=== PATIENT | female | born 1955 | race Caucasian/White ===

== ENCOUNTER → 2017-07-20 11:01 | Outpatient (CLI) | payer BC, SELFPAY ==
[2017-03-03 12:56] VITALS: BMI 28.8
[2017-03-03 16:08] VITALS: BP 151/79
[2017-07-20 12:05] LABS: Absolute Lymphocyte Count 0.92 X10^3/ul (0.83-4.51); Absolute Neutrophil Count 2.6 X10^3/uL (2.0-7.7); Basophil# 0.03 X10^3/uL; Basophil% 0.7 % (0-1); Eosinophil# 0.09 X10^3/uL; Eosinophils% 2.1 % (0-5); Hematocrit 40.9 % (37-47); Hemoglobin 13.9 g/dl (12.0-15.0); Lymphocyte # 0.92 X10^3/ul (4.0); Lymphocyte % 21.9 % (19-41); Mean Corpuscular Hgb 32.6 pg (27.0-32.0); Mean Platelet Vol. 11.9 fl (6.2-12.0); Monocyte# 0.52 X10^3/uL; Monocyte% 12.4 % (0-10); Neutrophil # 2.64 X10^3/uL (2.7-7.7); Neutrophil % 62.7 % (47-70); Platelet Count 217 K/mm3 (150-450); RBC Distribution Width CV 13.4 % (11.6-14.6); Red Blood Count 4.26 M/mm3 (4.2-5.4); White Blood Count 4.2 K/mm3 (4.4-11.0)
[2017-07-20 12:09] LABS: POSITIVE COUNT NO; POSITIVE DIFFERENTIAL NO; POSITIVE MORPHOLOGY NO
[2017-07-20 12:37] LABS: ALB/GLOB Ratio 1.1 RATIO (0.9-2.4); AST(SGOT) 18 U/L (15-37); Alanine Aminotransfer ALT/SGPT 26 U/L (13-56); Albumin, Serum 3.8 g/dL (3.2-5.0); Alkaline Phosphatase 60 U/L (45-117); Anion Gap 4 (5-15); BUN 21 mg/dL (7-18); BUN/Creat Ratio 21.9 RATIO (10-20); Chloride 104 mmol/L (98-107); Creatinine, Serum 0.96 mg/dL (0.55-1.02); EST Glomerular Filtration Rate 63 mL/min (>60); Est Glom Filt Rate - Afr Amer 76 mL/min (>60); Globulin 3.5 g/dL (2.2-4.2); Glucose 90 mg/dL (74-106); Protein, Total 7.3 g/dL (6.4-8.2); Sodium Level 138 mmol/L (136-145)
== END ==
PROVIDERS: Family Provider Family Medicine; PCP Family Medicine; Visit Provider Internal Medicine Rheumatology
DX: M06.4 Inflammatory polyarthropathy (principal); Z79.899 Other long term (current) drug therapy; M79.7 Fibromyalgia; C49.A2 Gastrointestinal stromal tumor of stomach
CPT/HCPCS: 36415; 80053; 85025

== ENCOUNTER → 2017-10-11 09:19 | Outpatient (CLI) | payer BC, SELFPAY ==
[2017-10-11 12:59] LABS: ALB/GLOB Ratio 1.2 RATIO (0.9-2.4); AST(SGOT) 24 U/L (15-37); Alanine Aminotransfer ALT/SGPT 23 U/L (13-56); Albumin, Serum 3.8 g/dL (3.2-5.0); Alkaline Phosphatase 73 U/L (45-117); Anion Gap 9 (5-15); BUN 16 mg/dL (7-18); BUN/Creat Ratio 17.8 RATIO (10-20); Calcium,Total 9.2 mg/dL (8.5-10.1); Chloride 107 mmol/L (98-107); EST Glomerular Filtration Rate 68 mL/min (>60); Est Glom Filt Rate - Afr Amer 82 mL/min (>60); Globulin 3.3 g/dL (2.2-4.2); Glucose 84 mg/dL (74-106); Protein, Total 7.1 g/dL (6.4-8.2); Sodium Level 142 mmol/L (136-145)
[2017-10-11 13:21] LABS: Absolute Lymphocyte Count 1.12 X10^3/ul (0.83-4.51); Absolute Neutrophil Count 1.9 X10^3/uL (2.0-7.7); Basophil# 0.01 X10^3/uL; Basophil% 0.3 % (0-1); Eosinophil# 0.06 X10^3/uL; Eosinophils% 1.8 % (0-5); Hematocrit 38.8 % (37-47); Hemoglobin 12.9 g/dl (12.0-15.0); Lymphocyte # 1.12 X10^3/ul (4.0); Lymphocyte % 32.7 % (19-41); Mean Corp Hgb Conc 33.2 g/gl (32-36); Mean Corpuscular Hgb 32.8 pg (27.0-32.0); Mean Corpuscular Volume 98.7 fL (81-99); Mean Platelet Vol. 12.3 fl (6.2-12.0); Monocyte# 0.36 X10^3/uL; Monocyte% 10.5 % (0-10); Neutrophil # 1.87 X10^3/uL (2.7-7.7); Neutrophil % 54.7 % (47-70); Platelet Count 208 K/mm3 (150-450); RBC Distribution Width CV 12.8 % (11.6-14.6); RBC Distribution Width SD 46.2 fl (35.1-43.9); Red Blood Count 3.93 M/mm3 (4.2-5.4); White Blood Count 3.4 K/mm3 (4.4-11.0)
[2017-10-11 13:33] LABS: POSITIVE COUNT NO; POSITIVE DIFFERENTIAL NO; POSITIVE MORPHOLOGY NO
== END ==
PROVIDERS: Family Provider Family Medicine; PCP Family Medicine; Visit Provider Internal Medicine Rheumatology
DX: M06.4 Inflammatory polyarthropathy (principal); Z79.899 Other long term (current) drug therapy; M79.7 Fibromyalgia; C49.A2 Gastrointestinal stromal tumor of stomach
CPT/HCPCS: 36415; 80053; 85025

== ENCOUNTER → 2017-12-29 09:44 | Outpatient (CLI) | payer BC, SELFPAY ==
[2017-12-29 12:47] LABS: AST(SGOT) 38 U/L (15-37); Alanine Aminotransfer ALT/SGPT 37 U/L (13-56); Albumin, Serum 3.7 g/dL (3.2-5.0); Alkaline Phosphatase 77 U/L (45-117); Anion Gap 6 (5-15); BUN 15 mg/dL (7-18); BUN/Creat Ratio 17.7 RATIO (10-20); Calcium,Total 8.8 mg/dL (8.5-10.1); Chloride 105 mmol/L (98-107); Creatinine, Serum 0.85 mg/dL (0.55-1.02); EST Glomerular Filtration Rate 73 mL/min (>60); Est Glom Filt Rate - Afr Amer 88 mL/min (>60); Globulin 3.8 g/dL (2.2-4.2); Glucose 79 mg/dL (74-106); Potassium 4.2 mmol/L (3.5-5.1); Protein, Total 7.5 g/dL (6.4-8.2); Sodium Level 140 mmol/L (136-145)
[2017-12-29 12:48] LABS: Absolute Lymphocyte Count 1.26 X10^3/ul (0.83-4.51); Absolute Neutrophil Count 2.2 X10^3/uL (2.0-7.7); Basophil# 0.02 X10^3/uL; Basophil% 0.5 % (0-1); Eosinophil# 0.08 X10^3/uL; Hematocrit 40.1 % (37-47); Hemoglobin 13.4 g/dl (12.0-15.0); Lymphocyte # 1.26 X10^3/ul (4.0); Lymphocyte % 32.1 % (19-41); Mean Corp Hgb Conc 33.4 g/gl (32-36); Mean Corpuscular Hgb 32.5 pg (27.0-32.0); Mean Corpuscular Volume 97.3 fL (81-99); Mean Platelet Vol. 11.6 fl (6.2-12.0); Monocyte# 0.39 X10^3/uL; Monocyte% 9.9 % (0-10); Neutrophil # 2.17 X10^3/uL (2.7-7.7); Neutrophil % 55.5 % (47-70); Platelet Count 215 K/mm3 (150-450); RBC Distribution Width CV 12.6 % (11.6-14.6); Red Blood Count 4.12 M/mm3 (4.2-5.4); White Blood Count 3.9 K/mm3 (4.4-11.0)
[2017-12-29 12:58] LABS: POSITIVE COUNT NO; POSITIVE DIFFERENTIAL NO; POSITIVE MORPHOLOGY NO
== END ==
PROVIDERS: Family Provider Family Medicine; PCP Family Medicine; Visit Provider Internal Medicine Rheumatology
DX: M06.4 Inflammatory polyarthropathy (principal); Z79.899 Other long term (current) drug therapy; M79.7 Fibromyalgia; C49.A2 Gastrointestinal stromal tumor of stomach
CPT/HCPCS: 36415; 80053; 85025

== ENCOUNTER → 2018-03-18 10:30 | Outpatient (CLI) | payer BC, SELFPAY ==
--- NOTE | 2018-03-18 10:30 | ASPS_PTH ---
PATIENT: SARAI MORAN LOC: [facility] U#:[id number] AGE/SX: 70/F ROOM: RE03/18/[address]: Dr. Gonzalo Medrano III, MD : 1955 BED: DIS: SPEC #: [id number] RECD: 03/21/18 14:21 STATUS: SOFIA REJanneth #: [id number] MARIBEL: 03/18/18 10:[address]: Miguel Medrano DEPT: CYTOLOGY RECD BY: Armen Dangelo ENTERED: 03/21/18 14:25 SP TYPE: ASPIRATION OTHR DR: Dr. Gonzalo Medrano III, MD Tissues: A - Thyroid gland, NOS B - Thyroid gland, NOS Procedures: Pap Stain (control) Special Stain Group II Cytology Other Comments: @ Ordering doctor for SSII edited from to @ by ROMIE at 03/21/18 154 @ Ordering doctor for CYOTHER edited from to @ by ROMIE at 03/21/18 1544 @ Submitting doctor edited from to @ by ROMIE at 03/21/18 1545 HEADER OPERATION: Bilateral thyroid FNA PRE-OP DIAGNOSIS: Bilateral thyroid nodules TISSUE SUBMITTED: A - Right thyroid slides 6, B - Left thyroid slides 6 DIAGNOSIS CYTOLOGY A. Right thyroid nodule, FNA (smears): Consistent with benign follicular nodule. See cytology study and comment. B. Left thyroid nodule, FNA (smears): Consistent with benign follicular nodule, favor colloid nodule. See cytology study and comment. SJ:rg 03/22/18 COMMENT Correlation with clinical, radiologic findings and appropriate follow up are necessary. CYTOLOGY STUDY Slides are reviewed. A. The specimen is adequate for evaluation. The specimen consists of benign follicular cells. B. The specimen is adequate for evaluation. The specimen consists of benign follicular cells and colloid. CYTOLOGY GROSS A - Received are six smears labeled with the patient's name and designated per the requisition as right thyroid. Submitted for staining. B - Received are six smears labeled with the patient's name and designated per the requisition as left thyroid. Submitted for staining. 03/21/18 TC:5 CPT: 81015 x2
== END ==
PROVIDERS: Visit Provider Family Medicine
DX: E04.1 Nontoxic single thyroid nodule (principal)
CPT/HCPCS: 88161; 88313

== ENCOUNTER → 2018-03-24 10:29 | Outpatient (CLI) | payer BC, SELFPAY ==
[2018-03-24 12:13] LABS: Absolute Lymphocyte Count 1.03 X10^3/ul (0.83-4.51); Absolute Neutrophil Count 1.6 X10^3/uL (2.0-7.7); Basophil# 0.02 X10^3/uL; Basophil% 0.6 % (0-1); Eosinophil# 0.07 X10^3/uL; Eosinophils% 2.2 % (0-5); Hemoglobin 13.2 g/dl (12.0-15.0); Lymphocyte # 1.03 X10^3/ul (4.0); Mean Corp Hgb Conc 33.8 g/gl (32-36); Mean Corpuscular Hgb 32.5 pg (27.0-32.0); Mean Corpuscular Volume 96.1 fL (81-99); Mean Platelet Vol. 11.9 fl (6.2-12.0); Monocyte# 0.36 X10^3/uL; Monocyte% 11.5 % (0-10); Neutrophil # 1.64 X10^3/uL (2.7-7.7); Neutrophil % 52.7 % (47-70); Platelet Count 193 K/mm3 (150-450); RBC Distribution Width CV 12.6 % (11.6-14.6); RBC Distribution Width SD 42.8 fl (35.1-43.9); Red Blood Count 4.06 M/mm3 (4.2-5.4); White Blood Count 3.1 K/mm3 (4.4-11.0)
[2018-03-24 12:24] LABS: ALB/GLOB Ratio 1.2 RATIO (0.9-2.4); AST(SGOT) 25 U/L (15-37); Alanine Aminotransfer ALT/SGPT 26 U/L (13-56); Albumin, Serum 3.8 g/dL (3.2-5.0); Alkaline Phosphatase 50 U/L (45-117); Anion Gap 7 (5-15); BUN 18 mg/dL (7-18); Calcium,Total 9.2 mg/dL (8.5-10.1); Chloride 107 mmol/L (98-107); EST Glomerular Filtration Rate 68 mL/min (>60); Est Glom Filt Rate - Afr Amer 82 mL/min (>60); Globulin 3.3 g/dL (2.2-4.2); Glucose 87 mg/dL (74-106); Potassium 4.1 mmol/L (3.5-5.1); Protein, Total 7.1 g/dL (6.4-8.2); Sodium Level 142 mmol/L (136-145)
[2018-03-24 12:28] LABS: POSITIVE COUNT NO; POSITIVE DIFFERENTIAL NO; POSITIVE MORPHOLOGY NO
== END ==
PROVIDERS: Family Provider Family Medicine; PCP Family Medicine; Referring Provider Internal Medicine Rheumatology; Visit Provider Internal Medicine Rheumatology
DX: M06.4 Inflammatory polyarthropathy (principal); Z79.899 Other long term (current) drug therapy; M79.7 Fibromyalgia; C49.A2 Gastrointestinal stromal tumor of stomach
CPT/HCPCS: 36415; 80053; 85025

== ENCOUNTER → 2018-03-25 06:40 | Outpatient (CLI) | payer BC, SELFPAY ==
--- NOTE | 2018-03-25 06:43 | CT_ITS ---
STUDY: CT SOFT TISSUE NECK WITH CONTRAST REASON FOR EXAM: Female, 63 years old. Left-sided neck mass RADIATION DOSAGE (If Supplied By Facility): CTDIvol = ( 13.73 ) mGy, DLP = ( 394.36 ) mGycm TECHNIQUE: The patient was scanned in a multi-detector CT scanner. High resolution transaxial imaging was performed following intravenous administration of 75 ml of Isovue 300 contrast material. Sagittal and coronal images were reconstructed. Individualized dose optimization techniques were used for this CT. COMPARISON: None. FINDINGS: Several images are limited due to scanning artifact caused by metallic dental work. Normal bilateral parotid glands. Normal bilateral dietary supervisor spaces. Normal bilateral parapharyngeal spaces. Normal bilateral carotid spaces. Normal bilateral sublingual and submandibular glands and spaces. The left-sided skin marker is located superficial to a normal-appearing left submandibular gland. Normal visualized nasopharynx. Normal retropharyngeal space. Normal perivertebral space. Normal visualized bilateral faucial tonsils. The visualized tongue, tongue base and oropharynx are normal. The visualized cervical lymph nodes (levels I-) are within normal size limits, and maintain normal morphology. There is no demonstrated solid or cystic mass lesion. There is no abnormal contrast enhancement. Normal epiglottis, bilateral vallecula and hypopharynx. The pre-epiglottic and paraglottic adipose spaces are normal. Normal visualized bilateral piriform sinuses, aryepiglottic folds, vocal cords, and arytenoid-cricoid articulations. Normal subglottic trachea. There are low-attenuation foci of the left and right thyroid lobes consistent with nodules and/or cysts. Normal visualized pulmonary apices. Normal visualized paranasal sinuses. Normal visualized cervical spine. CT/Soft Tissue Neck WITH Contrast IMPRESSION: There is no evidence of cervical mass or adenopathy. The left-sided skin marker is located superficial to a normal-appearing left submandibular gland. There are low-attenuation foci of the left and right thyroid lobes consistent with cysts and/or nodules. Electronically Signed: Efraín Fulton MD at 18:42 EDT , Service support ,
== END ==
PROVIDERS: Family Provider Family Medicine; PCP Family Medicine; Referring Provider Surgery; Visit Provider Surgery
DX: R22.1 Localized swelling, mass and lump, neck (principal)
CPT/HCPCS: 70491; Q9967

== ENCOUNTER → 2018-06-24 10:59 | Outpatient (CLI) | payer BC, SELFPAY ==
[2018-03-17 08:07] VITALS: BMI 27.4
[2018-06-24 12:26] LABS: Absolute Lymphocyte Count 0.92 X10^3/ul (0.83-4.51); Absolute Neutrophil Count 2.8 X10^3/uL (2.0-7.7); Basophil# 0.02 X10^3/uL; Basophil% 0.5 % (0-1); Eosinophil# 0.05 X10^3/uL; Eosinophils% 1.2 % (0-5); Hemoglobin 13.1 g/dl (12.0-15.0); Lymphocyte # 0.92 X10^3/ul (4.0); Lymphocyte % 22.3 % (19-41); Mean Corp Hgb Conc 33.6 g/gl (32-36); Mean Corpuscular Hgb 32.8 pg (27.0-32.0); Mean Corpuscular Volume 97.7 fL (81-99); Monocyte# 0.37 X10^3/uL; Neutrophil # 2.76 X10^3/uL (2.7-7.7); Platelet Count 200 K/mm3 (150-450); RBC Distribution Width CV 12.1 % (11.6-14.6); RBC Distribution Width SD 41.8 fl (35.1-43.9); Red Blood Count 3.99 M/mm3 (4.2-5.4); White Blood Count 4.1 K/mm3 (4.4-11.0)
[2018-06-24 12:32] LABS: POSITIVE COUNT NO; POSITIVE DIFFERENTIAL NO; POSITIVE MORPHOLOGY NO
[2018-06-24 12:47] LABS: AST(SGOT) 20 U/L (15-37); Alanine Aminotransfer ALT/SGPT 23 U/L (13-56); Albumin, Serum 3.8 g/dL (3.2-5.0); Alkaline Phosphatase 72 U/L (45-117); Anion Gap 8 (5-15); BUN 14 mg/dL (7-18); BUN/Creat Ratio 16.3 RATIO (10-20); Calcium,Total 9.2 mg/dL (8.5-10.1); Chloride 104 mmol/L (98-107); Creatinine, Serum 0.86 mg/dL (0.55-1.02); EST Glomerular Filtration Rate 72 mL/min (>60); Est Glom Filt Rate - Afr Amer 87 mL/min (>60); Globulin 3.7 g/dL (2.2-4.2); Glucose 100 mg/dL (74-106); Potassium 4.3 mmol/L (3.5-5.1); Protein, Total 7.5 g/dL (6.4-8.2); Sodium Level 141 mmol/L (136-145)
== END ==
PROVIDERS: Family Provider Family Medicine; PCP Family Medicine; Referring Provider Internal Medicine Rheumatology; Visit Provider Internal Medicine Rheumatology
DX: M06.4 Inflammatory polyarthropathy (principal); Z79.899 Other long term (current) drug therapy; M79.7 Fibromyalgia; C49.A2 Gastrointestinal stromal tumor of stomach
CPT/HCPCS: 36415; 80053; 85025

== ENCOUNTER → 2018-09-12 10:12 | Outpatient (CLI) | payer BC, SELFPAY ==
[2018-03-17 08:07] VITALS: BMI 27.4
[2018-09-12 12:49] LABS: ALB/GLOB Ratio 1.1 RATIO (0.9-2.4); AST(SGOT) 27 U/L (15-37); Alanine Aminotransfer ALT/SGPT 26 U/L (13-56); Albumin, Serum 3.9 g/dL (3.2-5.0); Alkaline Phosphatase 64 U/L (45-117); Anion Gap 5 (5-15); BUN 13 mg/dL (7-18); BUN/Creat Ratio 15.2 RATIO (10-20); Chloride 107 mmol/L (98-107); Creatinine, Serum 0.86 mg/dL (0.55-1.02); EST Glomerular Filtration Rate 72 mL/min (>60); Est Glom Filt Rate - Afr Amer 87 mL/min (>60); Globulin 3.7 g/dL (2.2-4.2); Glucose 78 mg/dL (74-106); Potassium 3.9 mmol/L (3.5-5.1); Protein, Total 7.6 g/dL (6.4-8.2); Sodium Level 141 mmol/L (136-145)
[2018-09-12 13:57] LABS: Absolute Neutrophil Count 2.1 X10^3/uL (2.0-7.7); Basophil# 0.02 X10^3/uL; Basophil% 0.7 % (0-1); Eosinophil# 0.04 X10^3/uL; Eosinophils% 1.3 % (0-5); Hematocrit 40.4 % (37-47); Hemoglobin 13.5 g/dl (12.0-15.0); Lymphocyte % 20.1 % (19-41); Mean Corp Hgb Conc 33.4 g/gl (32-36); Mean Corpuscular Hgb 31.6 pg (27.0-32.0); Mean Corpuscular Volume 94.6 fL (81-99); Mean Platelet Vol. 11.9 fl (6.2-12.0); Monocyte# 0.27 X10^3/uL; Neutrophil # 2.06 X10^3/uL (2.7-7.7); Neutrophil % 68.9 % (47-70); Platelet Count 184 K/mm3 (150-450); RBC Distribution Width CV 12.3 % (11.6-14.6); RBC Distribution Width SD 41.7 fl (35.1-43.9); Red Blood Count 4.27 M/mm3 (4.2-5.4)
[2018-09-12 14:14] LABS: Differential Indicated SCAN CRITERIA MET; POSITIVE COUNT NO; POSITIVE DIFFERENTIAL YES; POSITIVE MORPHOLOGY NO
== END ==
PROVIDERS: Family Provider Family Medicine; PCP Family Medicine; Referring Provider Internal Medicine Rheumatology; Visit Provider Internal Medicine Rheumatology
DX: M06.4 Inflammatory polyarthropathy (principal); Z79.899 Other long term (current) drug therapy; M79.7 Fibromyalgia
CPT/HCPCS: 36415; 80053; 85025

== ENCOUNTER → 2019-01-04 11:23 | Outpatient (CLI) | payer BC, SELFPAY ==
[2018-03-17 08:07] VITALS: BMI 27.4
[2019-01-04 14:19] LABS: Absolute Neutrophil Count 2.5 X10^3/uL (2.0-7.7); Basophil# 0.04 X10^3/uL; Eosinophil# 0.15 X10^3/uL; Eosinophils% 3.7 % (0-5); Hemoglobin 13.8 g/dL (12.0-15.0); Lymphocyte % 24.7 % (19-41); Mean Corp Hgb Conc 33.7 g/dL (32-36); Mean Corpuscular Hgb 33.3 pg (27.0-32.0); Mean Platelet Vol. 11.6 fl (6.2-12.0); Monocyte% 9.9 % (0-10); NRBC Flagged by Analyzer 0 % (0-5); Neutrophil # 2.45 X10^3/uL (2.7-7.7); Neutrophil % 60.5 % (47-70); Platelet Count 242 K/mm3 (150-450); RBC Distribution Width CV 12.3 % (11.6-14.6); RBC Distribution Width SD 45.1 fl (35.1-43.9); Red Blood Count 4.14 M/mm3 (4.2-5.4); White Blood Count 4.1 K/mm3 (4.4-11.0)
[2019-01-04 14:31] LABS: AST(SGOT) 25 U/L (15-37); Alanine Aminotransfer ALT/SGPT 28 U/L (13-56); Albumin, Serum 3.7 g/dL (3.2-5.0); Alkaline Phosphatase 80 U/L (45-117); Anion Gap 8 (5-15); BUN 17 mg/dL (7-18); Calcium,Total 9.1 mg/dL (8.5-10.1); Chloride 105 mmol/L (98-107); EST Glomerular Filtration Rate 60 mL/min (>60); Est Glom Filt Rate - Afr Amer 72 mL/min (>60); Globulin 3.7 g/dL (2.2-4.2); Glucose 69 mg/dL (74-106); Potassium 4.2 mmol/L (3.5-5.1); Protein, Total 7.4 g/dL (6.4-8.2); Sodium Level 142 mmol/L (136-145)
== END ==
PROVIDERS: Family Provider Family Medicine; PCP Family Medicine; Referring Provider Internal Medicine Rheumatology; Visit Provider Internal Medicine Rheumatology
DX: M06.4 Inflammatory polyarthropathy (principal); Z79.899 Other long term (current) drug therapy; M79.7 Fibromyalgia; C49.A2 Gastrointestinal stromal tumor of stomach
CPT/HCPCS: 36415; 80053; 85025

== ENCOUNTER → 2019-01-06 09:34 | Outpatient (CLI) | payer BC, SELFPAY ==
[2018-03-17 08:07] VITALS: BMI 27.4
--- NOTE | 2019-01-06 09:50 | RAD_ITS ---
STUDY: X-RAY - PELVIS AND BILATERAL HIPS REASON FOR EXAM: Female, 63 years old. Radiating pain after a fall TECHNIQUE: AP view of the pelvis.? 2 views of the right hip, and 2 views of the left hip were obtained. COMPARISON: None. FINDINGS: There is a non-specific bowel gas pattern. Normal visualized soft tissue structures. Normal bilateral iliac wings, sacroiliac joints and visualized sacrum. Normal bilateral superior and inferior pubic rami. Normal pubic symphysis. Normal bilateral ischial tuberosities. Replaced right hip joint demonstrates anatomic alignment. No plain film evidence of hardware complication, failure, or acute traumatic abnormality Normal visualized left femoral head. Normal left acetabulum. There is mild articular joint space narrowing of the left hip. RAD/Hips B/L min 2 views w/ Pelvis IMPRESSION: Degenerative and postsurgical changes noted in the pelvis. No demonstrated fracture or suspicious osseous lesion. However, hip and pelvic fractures in patients of this age can be subtle, if there are strong clinical suspicion of a fracture, recommend further evaluation with CT Electronically Signed: Edgar Coe MD at 10:25 EDT , Service support ,
== END ==
PROVIDERS: Family Provider Family Medicine; PCP Family Medicine; Referring Provider Internal Medicine Rheumatology; Visit Provider Internal Medicine Rheumatology
DX: M06.4 Inflammatory polyarthropathy (principal); Z79.899 Other long term (current) drug therapy; M79.7 Fibromyalgia; C49.A2 Gastrointestinal stromal tumor of stomach
CPT/HCPCS: 73521

== ENCOUNTER → 2019-03-23 09:55 | Outpatient (CLI) | payer OTHER, SELFPAY ==
[2018-03-17 08:07] VITALS: BMI 27.4
[2019-03-23 12:26] LABS: Absolute Lymphocyte Count 1.02 X10^3/uL (0.83-4.51); Absolute Neutrophil Count 1.9 X10^3/uL (2.0-7.7); Basophil# 0.03 X10^3/uL; Basophil% 0.9 % (0-1); Eosinophil# 0.06 X10^3/uL; Eosinophils% 1.8 % (0-5); Hemoglobin 13.2 g/dL (12.0-15.0); Lymphocyte # 1.02 X10^3/ul (4.0); Lymphocyte % 29.8 % (19-41); Mean Corpuscular Hgb 31.8 pg (27.0-32.0); Mean Corpuscular Volume 96.4 fL (81-99); Mean Platelet Vol. 11.8 fl (6.2-12.0); Monocyte# 0.36 X10^3/uL; Monocyte% 10.5 % (0-10); NRBC Flagged by Analyzer 0 % (0-5); Neutrophil # 1.94 X10^3/uL (2.7-7.7); Neutrophil % 56.7 % (47-70); Platelet Count 198 K/mm3 (150-450); RBC Distribution Width CV 12.3 % (11.6-14.6); RBC Distribution Width SD 43.2 fl (35.1-43.9); Red Blood Count 4.15 M/mm3 (4.2-5.4); White Blood Count 3.4 K/mm3 (4.4-11.0)
[2019-03-23 12:35] LABS: ALB/GLOB Ratio 1.1 RATIO (0.9-2.4); AST(SGOT) 29 U/L (15-37); Alanine Aminotransfer ALT/SGPT 31 U/L (13-56); Albumin, Serum 3.8 g/dL (3.2-5.0); Alkaline Phosphatase 69 U/L (45-117); Anion Gap 7 (5-15); BUN 18 mg/dL (7-18); BUN/Creat Ratio 20.2 RATIO (10-20); Calcium,Total 8.8 mg/dL (8.5-10.1); Chloride 107 mmol/L (98-107); Creatinine, Serum 0.89 mg/dL (0.55-1.02); EST Glomerular Filtration Rate 68 mL/min (>60); Est Glom Filt Rate - Afr Amer 83 mL/min (>60); Globulin 3.4 g/dL (2.2-4.2); Glucose 68 mg/dL (74-106); Potassium 3.9 mmol/L (3.5-5.1); Protein, Total 7.2 g/dL (6.4-8.2); Sodium Level 144 mmol/L (136-145)
== END ==
PROVIDERS: Family Provider Family Medicine; PCP Family Medicine; Referring Provider Internal Medicine Rheumatology; Visit Provider Internal Medicine Rheumatology
DX: M06.4 Inflammatory polyarthropathy (principal); Z79.899 Other long term (current) drug therapy; C49.A2 Gastrointestinal stromal tumor of stomach
CPT/HCPCS: 36415; 80053; 85025

== ENCOUNTER → 2019-06-22 09:43 | Outpatient (CLI) | payer OTHER, SELFPAY ==
[2018-03-17 08:07] VITALS: BMI 27.4
[2019-06-22 12:21] LABS: Absolute Lymphocyte Count 0.94 X10^3/uL (0.83-4.51); Absolute Neutrophil Count 2.5 X10^3/uL (2.0-7.7); Basophil# 0.03 X10^3/uL; Basophil% 0.8 % (0-1); Eosinophil# 0.08 X10^3/uL; Hematocrit 40.9 % (37-47); Hemoglobin 13.5 g/dL (12.0-15.0); Lymphocyte # 0.94 X10^3/ul (4.0); Lymphocyte % 23.8 % (19-41); Mean Corpuscular Hgb 31.9 pg (27.0-32.0); Mean Corpuscular Volume 96.7 fL (81-99); Mean Platelet Vol. 11.9 fl (6.2-12.0); Monocyte# 0.38 X10^3/uL; Monocyte% 9.6 % (0-10); NRBC Flagged by Analyzer 0 % (0-5); Neutrophil # 2.51 X10^3/uL (2.7-7.7); Neutrophil % 63.5 % (47-70); Platelet Count 227 K/mm3 (150-450); RBC Distribution Width CV 12.3 % (11.6-14.6); RBC Distribution Width SD 43.2 fl (35.1-43.9); Red Blood Count 4.23 M/mm3 (4.2-5.4)
[2019-06-22 12:37] LABS: ALB/GLOB Ratio 1.1 RATIO (0.9-2.4); AST(SGOT) 25 U/L (15-37); Alanine Aminotransfer ALT/SGPT 28 U/L (13-56); Albumin, Serum 3.8 g/dL (3.2-5.0); Alkaline Phosphatase 72 U/L (45-117); Anion Gap 7 (5-15); BUN 18 mg/dL (7-18); BUN/Creat Ratio 18.8 RATIO (10-20); Calcium,Total 9.2 mg/dL (8.5-10.1); Chloride 104 mmol/L (98-107); Creatinine, Serum 0.96 mg/dL (0.55-1.02); EST Glomerular Filtration Rate 63 mL/min (>60); Est Glom Filt Rate - Afr Amer 76 mL/min (>60); Globulin 3.6 g/dL (2.2-4.2); Glucose 83 mg/dL (74-106); Protein, Total 7.4 g/dL (6.4-8.2); Sodium Level 139 mmol/L (136-145)
== END ==
PROVIDERS: Family Provider Family Medicine; PCP Family Medicine; Referring Provider Internal Medicine Rheumatology; Visit Provider Internal Medicine Rheumatology
DX: M06.4 Inflammatory polyarthropathy (principal); Z79.899 Other long term (current) drug therapy; M79.7 Fibromyalgia; C49.A2 Gastrointestinal stromal tumor of stomach
CPT/HCPCS: 36415; 80053; 85025

== ENCOUNTER → 2019-08-15 13:07 | Outpatient (CLI) | payer OTHER, SELFPAY ==
[2019-07-24 11:51] VITALS: BMI 27.4
--- NOTE | 2019-08-15 13:13 | RAD_ITS ---
STUDY: X-RAY CHEST REASON FOR EXAM: Female, 64 years old. 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 FINDINGS: The lungs are clear and expanded. There is no demonstrated pleural abnormality. Normal size heart. Normal mediastinum and jessie. Normal visualized pulmonary arteries. Normal visualized aortic arch and descending thoracic aorta. Mild degenerative changes of the thoracic spine. Normal visualized ribs, clavicles, and shoulders. There is no demonstrated abnormality of the visualized soft tissue structures of the upper abdomen. RAD/Chest PA and Lateral IMPRESSION: Normal x-ray examination of the chest. Electronically Signed: Cornel Ramirez DO at 23:57 EST Tel [phone], Service support ,
== END ==
PROVIDERS: PCP Family Medicine; Referring Provider Internal Medicine Hematology & Oncology; Visit Provider Internal Medicine Hematology & Oncology
DX: C49.A2 Gastrointestinal stromal tumor of stomach (principal)
CPT/HCPCS: 71046

== ENCOUNTER → 2019-10-06 11:24 | Outpatient (CLI) | payer OTHER, SELFPAY ==
[2019-09-22 11:27] VITALS: BMI 27.4
[2019-10-06 15:23] LABS: Absolute Lymphocyte Count 1.06 X10^3/uL (0.83-4.51); Absolute Neutrophil Count 2.4 X10^3/uL (2.0-7.7); Basophil# 0.03 X10^3/uL; Basophil% 0.8 % (0-1); Eosinophil# 0.06 X10^3/uL; Eosinophils% 1.6 % (0-5); Hematocrit 41.1 % (37-47); Hemoglobin 13.6 g/dL (12.0-15.0); Lymphocyte # 1.06 X10^3/ul (4.0); Lymphocyte % 27.5 % (19-41); Mean Corp Hgb Conc 33.1 g/dL (32-36); Mean Corpuscular Hgb 32.2 pg (27.0-32.0); Mean Corpuscular Volume 97.4 fL (81-99); Mean Platelet Vol. 11.9 fl (6.2-12.0); Monocyte# 0.35 X10^3/uL; Monocyte% 9.1 % (0-10); NRBC Flagged by Analyzer 0 % (0-5); Neutrophil # 2.36 X10^3/uL (2.7-7.7); Platelet Count 237 K/mm3 (150-450); RBC Distribution Width CV 12.5 % (11.6-14.6); RBC Distribution Width SD 44.3 fl (35.1-43.9); Red Blood Count 4.22 M/mm3 (4.2-5.4); White Blood Count 3.9 K/mm3 (4.4-11.0)
[2019-10-06 15:53] LABS: ALB/GLOB Ratio 1.1 RATIO (0.9-2.4); AST(SGOT) 25 U/L (15-37); Alanine Aminotransfer ALT/SGPT 37 U/L (13-56); Albumin, Serum 3.7 g/dL (3.2-5.0); Alkaline Phosphatase 84 U/L (45-117); Anion Gap 5 (5-15); BUN 14 mg/dL (7-18); BUN/Creat Ratio 14.9 RATIO (10-20); Calcium,Total 9.4 mg/dL (8.5-10.1); Chloride 105 mmol/L (98-107); Creatinine, Serum 0.94 mg/dL (0.55-1.02); EST Glomerular Filtration Rate 64 mL/min (>60); Est Glom Filt Rate - Afr Amer 78 mL/min (>60); Globulin 3.5 g/dL (2.2-4.2); Glucose 85 mg/dL (74-106); Potassium 3.9 mmol/L (3.5-5.1); Protein, Total 7.2 g/dL (6.4-8.2); Sodium Level 139 mmol/L (136-145)
== END ==
PROVIDERS: PCP Family Medicine; Referring Provider Internal Medicine Rheumatology; Visit Provider Internal Medicine Rheumatology
DX: M06.4 Inflammatory polyarthropathy (principal); Z79.899 Other long term (current) drug therapy; M79.7 Fibromyalgia; M18.11 Unilateral primary osteoarthritis of first carpometacarpal joint, right hand; C49.A2 Gastrointestinal stromal tumor of stomach
CPT/HCPCS: 36415; 80053; 85025

== ENCOUNTER 2020-08-27 14:58 | Outpatient (RCR) | payer OTHER, SELFPAY ==
[2019-09-22 11:27] VITALS: BMI 27.4
[2020-08-27] MEDS: COVID-19 VACC, MRNA(PFIZER)/PF 30 MCG/0.3 ML SYRINGE IM (17:19)
[2020-09-17] MEDS: COVID-19 VACC, MRNA(PFIZER)/PF 30 MCG/0.3 ML SYRINGE IM (17:04)
== END 2020-08-27 23:59 ==
LOC: IMMUN 14:58
PROVIDERS: PCP Family Medicine; Referring Provider Family Medicine; Visit Provider Family Medicine
DX: Z23 Encounter for immunization (principal)
CPT/HCPCS: 0001A; 0002A; 91300

== ENCOUNTER 2021-04-10 10:23 | Emergency (ER) | payer OTHER, SELFPAY ==
[2021-04-10 10:33] VITALS: BP 153/73; PULSE 114; RESP 16; TEMP 36.1; O2SAT 99; BMI 27.4
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
[2021-04-10] MEDS: Ibuprofen 600 MG Tablet PO (12:12)
[2021-04-10 12:48] VITALS: PULSE 88; RESP 16; TEMP 36.9; O2SAT 98
== END 2021-04-10 12:51 | disposition home or self-care (01) ==
PROVIDERS: Emergency Provider Emergency Medicine
DX: S60.222A Contusion of left hand, initial encounter (principal); S80.12XA Contusion of left lower leg, initial encounter; Y92.410 Unspecified street and highway as the place of occurrence of the external cause; E04.2 Nontoxic multinodular goiter; K58.9 Irritable bowel syndrome, unspecified; M19.90 Unspecified osteoarthritis, unspecified site; Z79.899 Other long term (current) drug therapy; Z96.649 Presence of unspecified artificial hip joint
CPT/HCPCS: 29130; 73130; 73590; 99284

== ENCOUNTER → 2022-02-26 | Outpatient (CLI) | payer MEDICARE, OTHER, SELFPAY ==
--- NOTE | 2022-02-26 | ASPS_PTH ---
PATIENT: SARAI MORAN LOC: [facility] U#:[id number] AGE/SX: 66/F ROOM: RE02/26/[address]: Dr. Yolanda Lacy MD : 1955 BED: DIS: 02/26/2022 SPEC #: [id number] RECD: 02/26/22 13:02 STATUS: SOFIA REJanneth #: [id number] MARIBEL: 02/26/22 00:[address]: Yolanda Lacy DEPT: CYTOLOGY RECD BY: Tano Carrillo ENTERED: 02/26/22 13:03 SP TYPE: ASPIRATION OTHR DR: Dr. Benedict Roth MD Tissues: Breast, NOS Procedures: Special Stain Group II Cytology Other HEADER OPERATION: Left breast aspiration PRE-OP DIAGNOSIS: Left breast nipple discharge TISSUE SUBMITTED: Left breast nipple discharge DIAGNOSIS CYTOLOGY Fluid from nipple discharge (smears): Negative for malignant cells. See comment. AM:wade 02/27/2022 COMMENT The specimen is virtually acellular with rare degenerating macrophages and epithelioid cells. Clinical correlation is suggested. CYTOLOGY STUDY Slides are reviewed. CYTOLOGY GROSS Received are five smears labeled with the patient's name and designated per the requisition as left breast nipple. Submitted for staining. / wade 02/26/2022 TC:5 [facility]: [id number]
== END | disposition home or self-care (01) ==
PROVIDERS: PCP Internal Medicine; Referring Provider Surgery; Visit Provider Surgery
DX: N64.52 Nipple discharge (principal)
CPT/HCPCS: 88161; 88313

== ENCOUNTER 2023-03-10 16:25 | Emergency (ER) | payer MEDICARE, OTHER, SELFPAY ==
[2023-03-10 16:26] VITALS: BP 145/84; PULSE 76; RESP 16; TEMP 36; O2SAT 98; BMI 28.5
--- NOTE | 2023-03-10 16:59 | ED.VIS.GI ---
HPI HPI - GI History of Present Illness Chief Complaint: Abd Pain Informant: patient Abdominal Pain/Flank Pain Onset: Weeks (1) Context: Gradual Onset Timing: Continuous Quality: Burning, Dull and Sharp Location: LUQ, RLQ and LLQ Worsened by: Nothing Relieved by: Nothing Nausea/Vomiting/Emesis GI Symptom: Positive for Nausea; Negative for Vomiting Diarrhea/Melena/Hematochezia GI Symptom: Negative for Diarrhea, Melena or Hematochezia Associated Symptoms Associated Symptoms: Negative for Dysuria, Frequency or Hematuria Narrative Narrative: Patient presents with abdominal pain that has been constant over the past week. Patient states it has been waxing and waning. Patient states it is gradually gotten worse. Patient states her pain is mainly over the lower abdomen and left upper abdomen. Patient also admits to some pain around the periumbilical area. Patient states nothing makes it better and nothing makes it worse. Patient admits to some nausea but denies any vomiting. Patient denies any diarrhea, melena, or hematochezia. Patient does admit to some constipation. Patient denies any dysuria, frequency, or hematuria. Patient had an outpatient CT scan done today which showed a large amount of fecal material throughout the colon. There is a transition point in the distal rectosigmoid junction. Patient was then referred to the emergency department by her primary care physician. [facility] Medical History Acute bronchitis, unspecified Acute bronchitis, unspecified Arthralgia of temporomandibular joint Breast density Chest pain Chest wall contusion COVID-19 COVID-19 Elevated blood-pressure reading without diagnosis of hypertension Fatigue Fibromyalgia Hematoma of left lower leg HLA-B27 positive arthropathy IBS (irritable bowel syndrome) Lab test negative for COVID-19 virus Mass of left side of neck Multiple thyroid nodules Osteoarthritis Shingles Stromal tumor of the stomach Varicose veins of other specified sites Home Medications calcium carbonate 600 mg-vitamin D3 20 mcg (800 unit) tablet 1 ea PO DAILY 02/24/17 [History Last Taken Unknown] coenzyme Q10 100 mg-vitamin E 10 unit capsule 1 ea PO DAILY 02/24/17 [History Last Taken Unknown] carbamazepine 100 mg tablet,extended release,12 hr 100 mg PO BID 04/10/21 [History Last Taken Unknown] dexamethasone 6 mg tablet 6 mg PO DAILY #5 tabs 06/12/22 [Rx Last Taken Unknown] amoxicillin 875 mg-potassium clavulanate 125 mg tablet 1 tab PO BID #20 tabs 07/30/22 [Rx Last Taken Unknown] Allergy/AdvReac Type Severity Reaction Status Date / Time adhesive AdvReac BLISTERS Verified 03/10/23 16:28 atorvastatin [From Lipitor] AdvReac MUSCLE ACHE Verified 03/10/23 16:28 simvastatin [From Zocor] AdvReac MUSCLE ACHE Verified 03/10/23 16:28 Family History Mother Arthritis Diabetes Father Diabetes Heart disease High cholesterol Brother Heart disease High cholesterol Sister Heart disease Surgical History History of laparoscopic partial gastrectomy History of total hip replacement Hx of breast biopsy Hx of colonoscopy Hx of tubal ligation hx of tumor removal of stomach Hx of varicose vein stripping Social History Smoking Status: Never smoker second hand exposure: No alcohol intake: never substance use type: does not use caffeine: Yes (twice a month) what type of physical activity do you participate in: other details: physical work frequency: 3-4 times per week seatbelt use: always ROS ROS ED Constitutional Constitutional ED: Reports fever(s); Denies chills Eyes Eyes: Denies blurry vision or change in vision ENT ENT ED: Denies rhinorrhea or sore throat Cardiovascular Cardiovascular: Denies chest pain or palpitations Respiratory/Chest Respiratory/Chest: Denies cough or dyspnea Gastrointestinal Gastrointestinal: Reports abdominal pain, constipation and nausea; Denies vomiting Genitourinary Genitourinary ED: Denies dysuria or hematuria Musculoskeletal Musculoskeletal: Reports back pain; Denies neck pain Integumentary Denies abscess or rash Neurologic Neurologic: Reports headache(s); Denies weakness Allergic/Immunologic Allergic/Immunologic ED: Denies mouth swelling or urticaria EXAM Physical Exam Const Vital Signs: 03/10/23 16:26 03/10/23 20:23 Temperature 96.8 F L Temperature Source Temporal Pulse Rate 76 65 Respiratory Rate 16 15 Blood Pressure 145/84 H 166/75 H Blood Pressure Mean 104 105 Pulse Ox 98 97 Oxygen Delivery Method Room Air Room Air Positive well nourished and well developed General Appearance ED: well developed HEENT Reports moist mucous membranes Neck supple and no JVD Resp normal respiratory effort and clear to auscultation bilaterally Cardio regular rate, regular rhythm and no murmurs GI normal to inspection, nondistended, normoactive bowel sounds Palpation: soft and tender LLQ and periumbilical; Negative for guarding or rebound tenderness present Extremity normal to inspection General Extremety ED: Negative for edema or tenderness General Extremity: Negative for edema Neuro oriented x3, CN's II-XII intact bilaterally and no sensory deficits noted Sensorium / Orientation: alert Motor Exam: strength 5/5 throughout Psych mental status grossly normal Skin no rashes or lesions noted MDM MDM MDM Narrative Medical decision making narrative: Differential diagnosis includes bowel obstruction, constipation, colon stricture, gastroenteritis, and urinary tract infection. CBC will be obtained to assess for leukocytosis and anemia. Comprehensive metabolic profile will be obtained to assess for hepatic function, renal function, and electrolyte abnormality. Urinalysis will be obtained to assess for urinary tract infection. Lab Data Attestation: I reviewed the patient's lab results. Lab results narrative: CBC was reviewed and was within normal limits. Comprehensive metabolic profile was reviewed. Electrolytes were essentially within normal limits. CO2 was low at 17 and anion gap was elevated at 17. The remainder was within normal limits. Serum lactate was reviewed and was normal at 1.0. Repeat basic metabolic profile was reviewed. CO2 was now normal at 30.0 and anion gap was normal at 4. Labs: Laboratory Results - last 24 hr 03/10/23 03/10/23 03/10/23 17:19 18:40 20:55 WBC 4.6 RBC 4.39 Hgb 13.9 Hct 42.2 MCV 96.1 MCH 31.7 MCHC 32.9 RDW Std Deviation 42.4 RDW Coeff of Juan 11.9 Plt Count 208 MPV 12.1 H Immature Gran % (Auto) 0.000 Neut % (Auto) 61.3 Lymph % (Auto) 27.7 [place] % (Auto) 9.1 Eos % (Auto) 1.5 Baso % (Auto) 0.4 Absolute Neuts (auto) 2.8 Absolute Lymphs (auto) 1.28 Nucleated RBC % 0 Sodium 134 L 138 Potassium 3.4 L 3.8 Chloride 100 104 Carbon Dioxide 17.0 L 30.0 Anion Gap 17 H 4 L BUN 13 14 Creatinine 0.90 0.85 Estim Creat Clear Calc 46.40 49.13 Est GFR (MDRD) Af Amer 81 87 Est GFR (MDRD) Non-Af 67 72 BUN/Creatinine Ratio 14.5 16.5 Glucose 96 87 Lactic Acid 1.0 Calcium 9.2 9.6 Total Bilirubin 0.50 AST 18 ALT 27 Alkaline Phosphatase 62 Total Protein 7.8 Albumin 0.1 L Globulin 7.7 H Albumin/Globulin Ratio 0.0 L Urine Color Straw Urine Clarity Clear Urine pH 6.5 Ur Specific [place] 1.010 Urine Protein Negative Urine Glucose (UA) Normal Urine Ketones Negative Urine Occult Blood 10 H Urine Nitrite Negative Urine Bilirubin Negative Urine Urobilinogen Normal Ur Leukocyte Esterase 25 H Urine RBC 0 SEEN Urine WBC 0-5 SEEN Ur Squamous Epith Cells 0 SEEN Urine Bacteria 0 SEEN Urine Mucus 0 SEEN Treatment and Re-Evaluation :: Patient was given IV fluids here. Patient was given a soapsuds enema. Case was discussed with Dr. Murphy. She did not think that this would was a bowel obstruction. She stated that the patient can follow-up as an outpatient with gastroenterology for possible colonoscopy. Patient was encouraged to take laxatives as needed. Patient was given a referral for gastroenterology. Patient was also instructed to follow-up with her primary care physician in 5 to 7 days. Patient understands and is agreeable with the plan. All questions were answered. Discharge Plan Triage Chief Complaint: Abd Pain ED Provider: Benito Anderson Dx/Rx/DC Orders Clinical Impression: Constipation, IBS (irritable bowel syndrome) Instructions: ED Constipation (Adult) Prescriptions: No Action dexamethasone 6 mg tablet 6 mg PO DAILY Qty: 5 0RF amoxicillin-pot clavulanate 875-125 mg tablet 1 tab PO BID Qty: 20 0RF calcium carbonate-vitamin D3 1 EACH tablet 1 ea PO DAILY coenzyme [id number] 1 EACH capsule 1 ea PO DAILY carbamazepine 100 mg tablet extended release 12 hr 100 mg PO BID Patient Comments: TAKE 1 TABLET BY MOUTH TWICE DAILY Primary Care Provider: Gustabo Valdes Referrals: Gustabo Valdes MD [Primary Care Provider] - 5-7 Days Yolanda Lacy MD [Med Staff - Active Staff] - 5-7 Days Austyn Stern DO [Med Staff - Active Staff] - 5-7 Days Disposition Disposition: Home, Self Care
[2023-03-10 17:23] LABS: Bacteria 0 SEEN /hpf (None Seen); Mucous, Urine 0 SEEN /hpf (<or=2+); Red Blood Cells-Urine 0 SEEN /hpf (0-5); Squamous Epithelial Cells - UA 0 SEEN /hpf (5-10)
[2023-03-10 17:30] LABS: Color, Urine Straw (Yellow); Glucose, Dipstick Normal (Normal); Ketone-Dipstick Negative (Negative); Leukocyte Esterase-Dipstick 25 /ul (Negative); Nitrite-Dipstick Negative (Negative); Occult Blood-Urine 10 /ul (Negative); Protein-Dipstick Negative (Negative); Urine Bilirubin Dipstick Negative (Negative); Urine Clarity Clear (Clear); Urine Urobilinogen Normal (Normal); Urine pH 6.5 (5.0 - 8.0)
[2023-03-10 17:31] LABS: Absolute Lymphocyte Count 1.28 X10^3/uL (0.83-4.51); Absolute Neutrophil Count 2.8 X10^3/uL (2.0-7.7); Basophil# 0.02 X10^3/uL; Basophil% 0.4 % (0-1); Eosinophil# 0.07 X10^3/uL; Eosinophils% 1.5 % (0-5); Hematocrit 42.2 % (37-47); Hemoglobin 13.9 g/dL (12.0-15.0); Lymphocyte # 1.28 X10^3/ul (0.83-4.51); Lymphocyte % 27.7 % (19-41); Mean Corp Hgb Conc 32.9 g/dL (32-36); Mean Corpuscular Hgb 31.7 pg (27.0-32.0); Mean Corpuscular Volume 96.1 fL (81-99); Mean Platelet Vol. 12.1 fl (6.2-12.0); Monocyte# 0.42 X10^3/uL; Monocyte% 9.1 % (0-10); NRBC Flagged by Analyzer 0 % (0-5); Neutrophil # 2.83 X10^3/uL (2.7-7.7); Neutrophil % 61.3 % (47-70); Platelet Count 208 K/mm3 (150-450); RBC Distribution Width CV 11.9 % (11.6-14.6); RBC Distribution Width SD 42.4 fl (35.1-43.9); Red Blood Count 4.39 M/mm3 (4.2-5.4); White Blood Count 4.6 K/mm3 (4.4-11.0)
[2023-03-10 18:14] LABS: White Blood Cells 0-5 SEEN /hpf (0-5)
[2023-03-10 18:20] LABS: AST(SGOT) 18 U/L (15-37); Alanine Aminotransfer ALT/SGPT 27 U/L (13-56); Alkaline Phosphatase 62 U/L (45-117); BUN 13 mg/dL (7-18); BUN/Creat Ratio 14.5 RATIO (10-20); Calcium,Total 9.2 mg/dL (8.5-10.1); Chloride 100 mmol/L (98-107); EST Glomerular Filtration Rate 67 mL/min (>60); Est Glom Filt Rate - Afr Amer 81 mL/min (>60); Glucose 96 mg/dL (74-106); Potassium 3.4 mmol/L (3.5-5.1); Protein, Total 7.8 g/dL (6.4-8.2); Sodium Level 134 mmol/L (136-145)
[2023-03-10 20:23] VITALS: BP 166/75; PULSE 65; RESP 15; O2SAT 97
[2023-03-10] MEDS: 0.9% Normal Saline (1000mL) 1,000 ML 1000 ML IV (20:58)
[2023-03-10 21:22] LABS: Anion Gap 4 (5-15); BUN 14 mg/dL (7-18); BUN/Creat Ratio 16.5 RATIO (10-20); Calcium,Total 9.6 mg/dL (8.5-10.1); Chloride 104 mmol/L (98-107); Creatinine, Serum 0.85 mg/dL (0.55-1.02); EST Glomerular Filtration Rate 72 mL/min (>60); Est Glom Filt Rate - Afr Amer 87 mL/min (>60); Estimated Creatinine Clearance 49.13 ml/min; Glucose 87 mg/dL (74-106); Potassium 3.8 mmol/L (3.5-5.1); Sodium Level 138 mmol/L (136-145)
[2023-03-10 22:16] VITALS: BP 143/67; PULSE 65; RESP 15; O2SAT 97
[2023-03-11 07:53] LABS: ALB/GLOB Ratio 1.1 RATIO (0.9-2.4); Albumin, Serum 4.1 g/dL (3.2-5.0); Globulin 3.7 g/dL (2.2-4.2)
[2023-03-11 07:54] LABS: Anion Gap 8 (5-15)
== END 2023-03-10 22:34 | disposition home or self-care (01) ==
PROVIDERS: Emergency Provider Emergency Medicine; PCP Family Medicine; Visit Provider Emergency Medicine
DX: K59.00 Constipation, unspecified (principal); K58.0 Irritable bowel syndrome with diarrhea; Z96.649 Presence of unspecified artificial hip joint
CPT/HCPCS: 80048; 80053; 81001; 83605; 85025; 96360; 99285; J7030; A4216

== ENCOUNTER → 2023-03-10 | Outpatient (CLI) | payer MEDICARE, OTHER, SELFPAY ==
--- NOTE | 2023-03-10 09:02 | CT_ITS ---
STUDY: CT ABDOMEN AND PELVIS WITH CONTRAST REASON FOR EXAM: Female, 68 years old. Other intestinal obstruction unspecified as to partial versus com. One week history of no bowel movements. Fever. RADIATION DOSAGE (If Supplied By Facility): CTDIvol = ( 11.56 ) mGy, DLP = ( 644.29 ) mGycm TECHNIQUE: Transaxial images were obtained from the dome of the diaphragm to the symphysis pubis with oral contrast. Oral and amp;amp; IV Gastrografin and amp;amp; 100mL Isovue-300 was administered. Sagittal and coronal images were reconstructed. Individualized dose optimization techniques were used for this CT. COMPARISON: None. FINDINGS: The visualized lung bases are unremarkable. Coronary artery calcification. Normal liver. Normal gallbladder and extrahepatic biliary system. Normal spleen. Normal pancreas. Normal bilateral adrenal glands. Normal right kidney. Normal left kidney. Normal visualized stomach. Normal small intestine. Large amount of fecal material is seen throughout the colon. The transition point is in the distal rectosigmoid junction. I cannot rule out a stenosis at that level. The appendix is visualized and appears normal. There is diffuse atherosclerotic calcification of the abdominal aorta and its major visceral branches, without a demonstrated aneurysm. Normal inferior vena cava. Normal retroperitoneum. Normal urinary bladder. Normal abdominal wall. There are degenerative changes of the visualized lumbar spine. Almost complete collapse of the T11 vertebrae. Prior right hip replacement. CT/Abdomen/Pelvis WITH Contrast IMPRESSION: Large amount of fecal material is seen in the colon. A transition point is seen in the distal rectosigmoid junction. I cannot rule out a stenosis at that level. Electronically Signed: Kuldip Wade MD at 12:03 EDT ,
[2023-03-10 11:16] LABS: CREATININE FINGERSTICK < 0.9 mg/dL (0.55-1.02); EGFR FINGERSTICK > 60.0000 mL/min (>60)
== END | disposition home or self-care (01) ==
LOC: CT 09:01
PROVIDERS: PCP Internal Medicine; Referring Provider Family Medicine; Visit Provider Family Medicine
DX: K56.699 Other intestinal obstruction unspecified as to partial versus complete obstruction (principal); R10.84 Generalized abdominal pain; R50.9 Fever, unspecified; K59.00 Constipation, unspecified
CPT/HCPCS: 74177; Q9967

== ENCOUNTER 2024-06-18 13:44 | Inpatient (IN) | payer MEDICARE, OTHER, SELFPAY ==
[2024-06-18] VITALS (11 sets, daily range): BP systolic 149–167; BP diastolic 72–88; PULSE 71–79; RESP 16–30; TEMP 36.4–36.9; O2SAT 94–99; BMI 30.7; BMI 29.9
--- NOTE | 2024-06-18 14:20 | EKG12_ITS ---
Test Reason : SOB/GENERAL Blood Pressure : */* mmHG Vent. Rate : 73 BPM Atrial Rate : 73 BPM P-R Int : 162 ms QRS Dur : 86 ms QT Int : 410 ms P-R-T Axes : 71 57 34 degrees QTcB Int : 451 ms Normal sinus rhythm Normal ECG Confirmed by Domo Raman ([id number]), editorial project manager ABDULKADIR PAREDES ([id number]) on 06/19/2024 9:54:38 AM Referred By: Benito Huynh Confirmed By: Domo Raman
[2024-06-18 14:27] LABS: Absolute Lymphocyte Count 1.24 X10^3/uL (0.83-4.51); Absolute Neutrophil Count 3.1 X10^3/uL (2.0-7.7); Basophil# 0.03 X10^3/uL; Basophil% 0.6 % (0-1); Eosinophil# 0.06 X10^3/uL; Eosinophils% 1.2 % (0-5); Hematocrit 40.6 % (37-47); Hemoglobin 13.5 g/dL (12.0-15.0); Lymphocyte # 1.24 X10^3/ul (0.83-4.51); Lymphocyte % 25.5 % (19-41); Mean Corp Hgb Conc 33.3 g/dL (32-36); Mean Corpuscular Hgb 31.5 pg (27.0-32.0); Mean Corpuscular Volume 94.6 fL (81-99); Mean Platelet Vol. 11.7 fl (6.2-12.0); Monocyte# 0.41 X10^3/uL; Monocyte% 8.4 % (0-10); NRBC Flagged by Analyzer 0 % (0-5); Neutrophil # 3.11 X10^3/uL (2.7-7.7); Neutrophil % 63.9 % (47-70); Platelet Count 203 K/mm3 (150-450); RBC Distribution Width SD 41.4 fl (35.1-43.9); Red Blood Count 4.29 M/mm3 (4.2-5.4); White Blood Count 4.9 K/mm3 (4.4-11.0)
--- NOTE | 2024-06-18 14:30 | EDS_ITS ---
HPI <DAGMAR Romano - Last Filed: 06/18/24 15:13> History of Present Illness Chief Complaint: Chest Pain Narrative Narrative: Patient is 69-year-old female with history of fibromyalgia, arthritis, presenting to the emergency department for 4 days of chest pressure. Patient states she has a slight cough. Patient states that when she goes up and down steps she does feel more dyspneic. Patient denies any recent car rides, recent travel, recent surgeries, no history of blood clots to the legs or lungs. Patient states he is also been having pain to her neck and right arm and shoulder which she is currently receiving PT for. Denies any fever chills n ausea vomiting. PFSH <DAGMAR Romano - Last Filed: 06/18/24 15:13> [facility] Medical History Acute bronchitis, unspecified COVID-19 COVID-19 Elevated blood-pressure reading without diagnosis of hypertension Hematoma of left lower leg Chest wall contusion Lab test negative for COVID-19 virus Acute bronchitis, unspecified Chest pain Fatigue Mass of left side of neck Multiple thyroid nodules Varicose veins of other specified sites Stromal tumor of the stomach Shingles Osteoarthritis HLA-B27 positive arthropathy IBS (irritable bowel syndrome) Fibromyalgia Breast density Arthralgia of temporomandibular joint Home Medications ?Medication ?Instructions ?Recorded ?Last Taken ?Type calcium 600 mg (as 1 ea PO DAILY 02/24/17 Unknown History carbonate)-vitamin D3 20 mcg (800 unit) tablet carbamazepine 100 mg 100 mg PO BID 04/10/21 Unknown History tablet,extended release,12 hr celecoxib 100 mg capsule 100 mg PO BID 06/18/24 Unknown History estradiol 0.01% (0.1 mg/gram) 0.5 g vaginal .COMPLEX 06/18/24 Unknown History vaginal cream ezetimibe 10 mg tablet 10 mg PO DAILY 06/18/24 Unknown History pravastatin 10 mg tablet 30 mg PO DAILY 06/18/24 Unknown History trazodone 100 mg tablet 100 mg PO QHS 06/18/24 Unknown History Allergy/AdvReac Type Severity Reaction Status Date / Time adhesive AdvReac BLISTERS Verified 06/18/24 13:46 atorvastatin (From Lipitor) AdvReac MUSCLE ACHE Verified 06/18/24 13:46 simvastatin (From Zocor) AdvReac MUSCLE ACHE Verified 06/18/24 13:46 Family History Mother Arthritis Diabetes Father Diabetes Heart disease High cholesterol Brother Heart disease High cholesterol Sister Heart disease Surgical History History of total hip replacement hx of tumor removal of stomach History of laparoscopic partial gastrectomy Hx of varicose vein stripping Hx of tubal ligation Hx of colonoscopy Hx of breast biopsy Social History Smoking Status: Never smoker second hand exposure: No alcohol intake: never substance use type: does not use caffeine: Yes (twice a month) what type of physical activity do you participate in: other details: physical work frequency: 3-4 times per week seatbelt use: always ROS <DAGMAR Romano - Last Filed: 06/18/24 15:13> ROS ED ROS Narrative Constitutional: Negative for fever, chills, weight loss, weakness Eyes: Negative for vision loss, vision change, double vision ENT: Negative for any sore throat, ear pain, congestion Cardiovascular: Negative for any tightness, palpitations. Positive chest pressure Respiratory: Negative for any sputum production, hemoptysis, dyspnea, orthopnea. Positive for cough. Gastrointestinal: Negative for any abdominal pain, nausea, vomiting, diarrhea, constipation, blood in stool, blood in vomit : Negative for any urinary frequency, dysuria, retention, blood in urine Muscle skeletal: Negative for any neck pain, back pain. Pain to the right shoulder right arm Neurological: Negative for any headache, syncope, dizziness Skin: Negative for any rashes, itching, abrasions, lacerations Psychiatric: Negative for any depression, anxiety, stress, suicidal ideation, homicidal ideation Hematologic: Negative for any excessive bruising, easy bleeding EXAM <DAGMAR Romano - Last Filed: 06/18/24 15:13> Physical Exam Narrative Exam Narrative: Vital signs reviewed. HEET: Head normocephalic atraumatic, TMs clear bilaterally. Posterior pharynx is clear, moist mucous membranes. Nares clear bilaterally. Neck: Supple with no lymphadenopathy or tenderness. No signs of meningismus. Cardiac: Regular rate and rhythm no murmurs gallops or rubs, equal peripheral pulses bilaterally. Respiratory: Lungs clear to auscultation bilaterally. No chest tenderness. Abdomen: Soft, nontender, nondistended. No abdominal bruit or pulsatile masses. No hepatosplenomegaly Extremities: No peripheral edema, no signs of gross trauma or deformity. Active full range of motion of all extremities. Neuro: Cranial nerves II through XII intact, no focal neurological deficits. Skin: Clean dry and intact with no rash, purpura, petechiae, vesicles or pustules. Backs/flank: No CVA tenderness, no midline spinal tenderness, no deformity. Psych: Normal mood and affect. No SI, HI or acute psychosis. Const Vital Signs: 06/18/24 13:45 06/18/24 14:03 06/18/24 14:57 Temperature 98.2 F Temperature Source Oral Pulse Rate 77 74 Respiratory Rate 16 16 Respiratory Effort Normal Blood Pressure 167/72 H 152/72 H Blood Pressure Mean 103 98 Pulse Ox 99 98 Oxygen Delivery Method Room Air Room Air 06/18/24 15:00 06/18/24 15:13 Temperature 98.4 F Temperature Source Pulse Rate 73 79 Respiratory Rate 30 H 17 Respiratory Effort Blood Pressure 154/88 H 154/88 H Blood Pressure Mean 110 110 Pulse Ox 95 98 Oxygen Delivery Method Room Air <Dr. Jonny John MD - Last Filed: 06/18/24 16:02> Physical Exam Const Vital Signs: 06/18/24 13:45 06/18/24 14:03 06/18/24 14:57 Temperature 98.2 F Temperature Source Oral Pulse Rate 77 74 Respiratory Rate 16 16 Respiratory Effort Normal Blood Pressure 167/72 H 152/72 H Blood Pressure Mean 103 98 Pulse Ox 99 98 Oxygen Delivery Method Room Air Room Air 06/18/24 15:00 06/18/24 15:13 Temperature 98.4 F Temperature Source Pulse Rate 73 79 Respiratory Rate 30 H 17 Respiratory Effort Blood Pressure 154/88 H 154/88 H Blood Pressure Mean 110 110 Pulse Ox 95 98 Oxygen Delivery Method Room Air MDM <DAGMAR Romano - Last Filed: 06/18/24 15:13> [facility] Lab Data Labs: Laboratory Results - last 24 hr 06/18/24 14:00 WBC 4.9 RBC 4.29 Hgb 13.5 Hct 40.6 MCV 94.6 MCH 31.5 MCHC 33.3 RDW Std Deviation 41.4 RDW Coeff of Juan 12.0 Plt Count 203 MPV 11.7 Immature Gran % (Auto) 0.400 Neut % (Auto) 63.9 Lymph % (Auto) 25.5 [place] % (Auto) 8.4 Eos % (Auto) 1.2 Baso % (Auto) 0.6 Absolute Neuts (auto) 3.1 Absolute Lymphs (auto) 1.24 Nucleated RBC % 0 Sodium 138 Potassium 3.8 Chloride 105 Carbon Dioxide 27.0 Anion Gap 7 BUN 18 Creatinine 0.91 Estim Creat Clear Calc 55.08 Est GFR (MDRD) Af Amer 80 Est GFR (MDRD) Non-Af 66 BUN/Creatinine Ratio 19.9 Glucose 98 Calcium 9.0 Total Bilirubin 0.60 AST 30 ALT 25 Alkaline Phosphatase 77 Troponin I High Sens 75 H Total Protein 7.4 Albumin 3.8 Globulin 3.6 Albumin/Globulin Ratio 1.1 Lipase 45 Radiography Diagnostic Testing: Clinical Impression(s) from Imaging Studies Chest X-Ray 06/18/24 14:35 IMPRESSION: Degenerative changes, as described above. No demonstrated acute cardiopulmonary process. Electronically Signed: Felipe Mccormick MD at 15:12 EST Reading Location ID and State: [facility] / [place] , Service support , EKG Normal sinus rhythm: Attestation: I personally reviewed and interpreted this EKG as follows: Interpretation: Sinus Rhythm Comments: Normal sinus rhythm, rate of 73 bpm, VA interval 162 ms, QRS duration 86 ms, no acute ST elevation, no acute infarct noted. Treatment and Re-Evaluation :: Differential diagnosis includes however is not limited to: ACS, AK, muscle skeletal strain, community-acquired pneumonia, COVID-19 influenza RSV, PE Patient appears generally well, vital signs are stable, patient is nontoxic-appe aring. Presenting to the emergency department with complaints of chest pressure for the last 4 days. Patient, heart rate 73, 99% on room air, no obvious distress. Low probability for any pulmonary embolus, EKG is normal, no ACS or AK. Patient received some basic laboratory values including a troponin. COVID- 19 influenza and RSV, two-view chest x-ray. All radiologic examinations were read, reviewed by the emergency department attending. From these reads, a plan of care will be put in place. Patient's chest x-ray was unremarkable, patient CBC was unremarkable, chemistries unremarkable, patient's initial high sensitivity troponin was 75, lipase was negative. Secondary to this finding, the patient having chest pressure, HERRERA the patient needs to be admitted to the hospital. I spoke with admitting physician. Patient will be given 324 baby aspirin. Patient was made aware. <Dr. Jonny John MD - Last Filed: 06/18/24 16:02> [facility] Narrative Medical decision making narrative: I have personally performed a face to face assessment of the patient and have reviewed the WILIAM Note. I performed a substantive portion of the visit including all aspects of the following. My hoover findings include: History is 69-year-old female with 4-day history of constant chest discomfort. Says the pressure. Is not really associated with exertion. She had a stress test about a year ago which was negative. 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 She really denies any significant recent exertional dyspnea or exertional chest pain. She has no cardiac history. She is a non-smoker. No history of DVT or PE. Exam is [well-appearing 69-year-old female. Vital signs are stable. She is afebrile. Pulse ox 9 9% on room air no signs of hypoxia. H EENT exam unremarked. Neck nontender no JVD. Lungs clear to auscultation bilaterally. Heart regular rhythm no murmur. Abdomen is soft and nontender. Moving all 4 extremities. Nontender no edema. 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 Equal symmetrical radial pulses. Calves are nontender without edema or cords. Neurologically she is awake and alert. No focal motor deficits.] Medical Decision Making [69-year-old female with atypical nonreproducible and nonexertional chest discomfort. Undergo cardiac workup. She has had pain for 4 days. I think a single troponin will suffice. She had a history of a prior benign tumor it could be related to that. If her cardiac workup is negative today she be discharged home with outpatient further evaluation.] Other additions or changes: [None] History & Record Review Discussion w/independent historian: Patient Additional record(s) reviewed:: Prior inpatient record, Prior outpatient record, Prior ED visit and Prior labs Lab Data Attestation: I reviewed the patient's lab results. Lab results narrative: CBC normal. White count of 4. H&H 13.5 and 40. Platelets 203. Labs: Laboratory Results - last 24 hr 06/18/24 14:00 WBC 4.9 RBC 4.29 Hgb 13.5 Hct 40.6 MCV 94.6 MCH 31.5 MCHC 33.3 RDW Std Deviation 41.4 RDW Coeff of Juan 12.0 Plt Count 203 MPV 11.7 Immature Gran % (Auto) 0.400 Neut % (Auto) 63.9 Lymph % (Auto) 25.5 [place] % (Auto) 8.4 Eos % (Auto) 1.2 Baso % (Auto) 0.6 Absolute Neuts (auto) 3.1 Absolute Lymphs (auto) 1.24 Nucleated RBC % 0 Sodium 138 Potassium 3.8 Chloride 105 Carbon Dioxide 27.0 Anion Gap 7 BUN 18 Creatinine 0.91 Estim Creat Clear Calc 55.08 Est GFR (MDRD) Af Amer 80 Est GFR (MDRD) Non-Af 66 BUN/Creatinine Ratio 19.9 Glucose 98 Calcium 9.0 Total Bilirubin 0.60 AST 30 ALT 25 Alkaline Phosphatase 77 Troponin I High Sens 75 H Total Protein 7.4 Albumin 3.8 Globulin 3.6 Albumin/Globulin Ratio 1.1 Lipase 45 Radiography Diagnostic Testing: Clinical Impression(s) from Imaging Studies Chest X-Ray 06/18/24 14:35 IMPRESSION: Degenerative changes, as described above. No demonstrated acute cardiopulmonary process. Electronically Signed: Felipe Mccormick MD at 15:12 EST , Discharge Plan Dx/Rx/DC Orders Clinical Impression: Chest pressure, Elevated troponin I level Disposition Disposition: Acute Care [facility]
--- NOTE | 2024-06-18 14:35 | RAD_ITS ---
STUDY: X-RAY CHEST REASON FOR EXAM: Female, 69 years old. cough TECHNIQUE: PA and lateral views of the chest. COMPARISON: April 14, 2021 FINDINGS: No visualized consolidation. There are interstitial fibrotic changes of the lungs. There is no demonstrated pleural abnormality. Normal size heart. Normal mediastinum and jessie. Normal visualized pulmonary arteries. There is atherosclerotic calcification of the aortic arch with tortuosity. There are diffuse degenerative changes of the visualized thoracic spine. Normal visualized ribs, clavicles, and shoulders. There is no demonstrated abnormality of the visualized soft tissue structures of the upper abdomen. RAD/Chest PA and Lateral IMPRESSION: Degenerative changes, as described above. No demonstrated acute cardiopulmonary process. Electronically Signed: Felipe Mccormick MD at 15:12 EST ,
[2024-06-18 14:46] LABS: ALB/GLOB Ratio 1.1 RATIO (0.9-2.4); AST(SGOT) 30 U/L (15-37); Alanine Aminotransfer ALT/SGPT 25 U/L (13-56); Albumin, Serum 3.8 g/dL (3.2-5.0); Alkaline Phosphatase 77 U/L (45-117); Anion Gap 7 (5-15); BUN 18 mg/dL (7-18); BUN/Creat Ratio 19.9 RATIO (10-20); Chloride 105 mmol/L (98-107); Creatinine, Serum 0.91 mg/dL (0.55-1.02); EST Glomerular Filtration Rate 66 mL/min (>60); Est Glom Filt Rate - Afr Amer 80 mL/min (>60); Estimated Creatinine Clearance 55.08 ml/min; Globulin 3.6 g/dL (2.2-4.2); Glucose 98 mg/dL (74-106); Lipase 45 U/L (13-75); Potassium 3.8 mmol/L (3.5-5.1); Protein, Total 7.4 g/dL (6.4-8.2); Sodium Level 138 mmol/L (136-145); Troponin-I HS 75 pg/mL (3.0-54.0)
[2024-06-18] MEDS: Aspirin 81 MG TAB.CHEW 324 MG PO (15:10)
--- NOTE | 2024-06-18 15:29 | HP.PCM.HOS_ITS ---
HPI - General General Date of Service: 06/18/24 Chief Complaint: chest pain HPI Narrative SARAI MORAN, is a 69 F who presents with chest pain. Patient states that the chest pain is more midsternal slightly to the right and has been ongoing since this past . Feels like it is pressure-like. Does not radiate to her jaw nor her left arm but states that she has been seeing therapy for right arm paresthesias which has been previously attributed to her neck. She was not having any chest pain with that paresthesias. Such presented to the emergency room and had an EKG that was normal and a troponin of 75. The hospital service was contacted for admission. Patient did receive aspirin in the emergency room. Patient has never had any heart disease in the past but she does have a significant family history of heart disease. [facility] Medical History Acute bronchitis, unspecified COVID-19 COVID-19 Elevated blood-pressure reading without diagnosis of hypertension Hematoma of left lower leg Chest wall contusion Lab test negative for COVID-19 virus Acute bronchitis, unspecified Chest pain Fatigue Mass of left side of neck Multiple thyroid nodules Varicose veins of other specified sites Stromal tumor of the stomach Shingles Osteoarthritis HLA-B27 positive arthropathy IBS (irritable bowel syndrome) Fibromyalgia Breast density Arthralgia of temporomandibular joint Home Medications ?Medication ?Instructions ?Recorded ?Last Taken ?Type calcium 600 mg (as 1 ea PO DAILY 02/24/17 Unknown History carbonate)-vitamin D3 20 mcg (800 unit) tablet carbamazepine 100 mg 100 mg PO BID 04/10/21 Unknown History tablet,extended release,12 hr celecoxib 100 mg capsule 100 mg PO BID 06/18/24 Unknown History estradiol 0.01% (0.1 mg/gram) 0.5 g vaginal .COMPLEX 06/18/24 Unknown History vaginal cream ezetimibe 10 mg tablet 10 mg PO DAILY 06/18/24 Unknown History pravastatin 10 mg tablet 30 mg PO DAILY 06/18/24 Unknown History trazodone 100 mg tablet 100 mg PO QHS 06/18/24 Unknown History Allergy/AdvReac Type Severity Reaction Status Date / Time adhesive AdvReac BLISTERS Verified 06/18/24 13:46 atorvastatin (From Lipitor) AdvReac MUSCLE ACHE Verified 06/18/24 13:46 simvastatin (From Zocor) AdvReac MUSCLE ACHE Verified 06/18/24 13:46 Family History Mother Arthritis Diabetes Father Diabetes Heart disease High cholesterol Brother Heart disease High cholesterol Sister Heart disease Surgical History History of total hip replacement hx of tumor removal of stomach History of laparoscopic partial gastrectomy Hx of varicose vein stripping Hx of tubal ligation Hx of colonoscopy Hx of breast biopsy Social History Smoking Status: Never smoker second hand exposure: No alcohol intake: never substance use type: does not use caffeine: Yes (twice a month) what type of physical activity do you participate in: other details: physical work frequency: 3-4 times per week seatbelt use: always ROS ROS Narrative Denies any recent long travel, denies any lower extremity injuries, denies any personal history of VTE. All review of systems were negative except as mentioned above in the history of present illness and the other review of systems. Vital Signs Vital Signs Vital Signs: 06/18/24 13:45 06/18/24 14:03 06/18/24 14:57 Temperature 36.8 C Temperature Source Oral Pulse Rate 77 74 Respiratory Rate 16 16 Respiratory Effort Normal Blood Pressure 167/72 H 152/72 H Blood Pressure Mean 103 98 Pulse Ox 99 98 Oxygen Delivery Method Room Air Room Air 06/18/24 15:00 06/18/24 15:13 Temperature 36.9 C Temperature Source Pulse Rate 73 79 Respiratory Rate 30 H 17 Respiratory Effort Blood Pressure 154/88 H 154/88 H Blood Pressure Mean 110 110 Pulse Ox 95 98 Oxygen Delivery Method Room Air Weight Weight: 73.709 kg Body Mass Index (BMI) 30.7 Physical Exam Const alert and no apparent distress HEENT normocephalic and head/scalp atraumatic Resp normal respiratory effort, no retractions, no use of accessory muscles and clear to auscultation bilaterally Cardio regular rate, regular rhythm, S1 normal heart sound and S2 normal heart sound GI normal to inspection, nondistended, normoactive bowel sounds, soft to palpation, non-tender and non-distended Extremity normal to inspection and full ROM Extremity Narrative: no calf tenderness Neuro moves all extremities Sensorium / Orientation: awake and alert Results Lab / Micro Data Attestation: I reviewed the patient's lab results. 06/18/24 14:00 06/18/24 14:00 Labs: Laboratory Results - last 24 hr 06/18/24 14:00: WBC 4.9, RBC 4.29, Hgb 13.5, Hct 40.6, MCV 94.6, MCH 31.5, MCHC 33.3, RDW Std Deviation 41.4, RDW Coeff of Juan 12.0, Plt Count 203, MPV 11.7, Immature Gran % (Auto) 0.400, Neut % (Auto) 63.9, Lymph % (Auto) 25.5, [place] % (Auto) 8.4, Eos % (Auto) 1.2, Baso % (Auto) 0.6, Absolute Neuts (auto) 3.1, Absolute Lymphs (auto) 1.24, Nucleated RBC % 0, Sodium 138, Potassium 3.8, Chloride 105, Carbon Dioxide 27.0, Anion Gap 7, BUN 18, Creatinine 0.91, Estim Creat Clear Calc 55.08, Est GFR (MDRD) Af Amer 80, Est GFR (MDRD) Non-Af 66, BUN/Creatinine Ratio 19.9, Glucose 98, Calcium 9.0, Total Bilirubin 0.60, AST 30, ALT 25, Alkaline Phosphatase 77, Troponin I High Sens 75 H, Total Protein 7.4, Albumin 3.8, Globulin 3.6, Albumin/Globulin Ratio 1.1, Lipase 45 EKG Initial EKG: Attestation: I personally reviewed and interpreted this EKG as follows: Prior EKG tracings: available for review EKG Rhythm Intrepretation: Sinus Rhythm Imaging Radiology Impression Chest X-Ray 06/18/24 14:35 IMPRESSION: Degenerative changes, as described above. No demonstrated acute cardiopulmonary process. Electronically Signed: Felipe Mccormick MD at 15:12 EST Reading Location ID and State: [facility] / [place] , Service support , Assessment & Plan Assessment/Plan (1) Unstable angina: PLAN: Concerning for coronary related chest pain. Patient with elevated troponin all subsequent family medical history of heart disease Patient received aspirin in emergency room and will continue that on a daily basis for the time being. Will give patient a one-time dose of 1 mg/kg of enoxaparin. I reached out to Dr. Gutierrez who requested patient be made n.p.o. after midnight. Tentative plan to be for cardiac catheterization tomorrow. Will also check an echocardiogram. Check fasting lipid panel. Patient has a noted Intolerance to simvastatin and atorvastatin. Patient does take pravastatin as well as ezetimibe Low pretest probability for PE as patient has no personal history of VTE, no family history of VTE and no predisposing factors that she relates such as immobilization, trauma. Will have as needed nitroglycerin but patient continues to have chest pain may need to consider Nitropaste or nitroglycerin drip. PLAN: Plan Chronic conditions * Fibro myalgia * Trigeminal neuralgia * Osteoporosis * Arthritis VTE prophylaxis: Not indicated as patient will be anticoagulated. Charges/Coding Visit Charges Inpatient E&M: 11595 Init Hosp L3
[2024-06-18 16:38] LABS: Troponin-I HS 76 pg/mL (3.0-54.0)
--- NOTE | 2024-06-18 16:49 | ECHOD_ITS ---
Reason For Study: Chest pain Procedure This was a 2D Doppler, Color Flow transthoracic echocardiogram. Exam performed portable in patient room. Left Ventricle Normal LV size. Left ventricular systolic function is normal. The left ventricular ejection fraction is 60 %. No regional wall motion abnormalities noted. Right Ventricle Normal RV size. Normal systolic function. Atria Normal left atrium. Normal right atrium. Mitral Valve Redundant mitral valve cords but no prolapse noted. Mild-Moderate (1-2+) eccentric mitral valve insufficiency. Tricuspid Valve Normal tricuspid valve. Mild (1+) tricuspid valve insufficiency. Pulmonary artery systolic pressure is 28 mmHg. Aortic Valve Trisinus/trileaflet aortic valve. Pulmonic Valve Normal pulmonic valve. Great Vessels Normal aortic root. The pulmonary artery is normal size. Inferior vena cava collapse with respiration. Pericardium/Pleural No pericardial effusion. MMode/2D Measurements & Calculations LVIDd: 4.3 cm IVSd: 0.80 cm Ao root diam: 3.0 cm LVIDs: 2.9 cm LVPWd: 0.96 cm RVDd: 3.2 cm FS: 33.5 % LAV(MOD-bp): 37.0 ml LVAd ap4: 26.2 cm2 LVAd ap2: 24.3 cm2 LAV(MOD-bp) Indexed: 21.6 ml/m2 LVLd ap4: 7.3 cm LVLd ap2: 7.5 cm LAV(MOD-sp2): 38.0 ml EDV(MOD-sp4): 75.5 ml EDV(MOD-sp2): 66.7 ml LAV(MOD-sp4): 30.8 ml EDV(sp4-el): 79.5 ml EDV(sp2-el): 66.9 ml LVAs ap4: 15.1 cm2 LVAs ap2: 14.2 cm2 LVLs ap4: 6.4 cm LVLs ap2: 6.5 cm ESV(MOD-sp4): 29.6 ml ESV(MOD-sp2): 26.7 ml ESV(sp4-el): 30.2 ml ESV(sp2-el): 26.3 ml EF(MOD-sp4): 60.8 % EF(MOD-sp2): 60.0 % EF(sp4-el): 62.0 % SV(MOD-sp4): 45.9 ml SV(MOD-sp2): 40.0 ml SV(sp4-el): 49.3 ml SI(MOD-sp4): 26.9 ml/m2 SI(MOD-sp2): 23.4 ml/m2 LA A4 area: 12.3 cm2 LA dimension(2D): 3.3 cm RA A4 area: 12.2 cm2 TAPSE: 2.6 cm Time Measurements MV dec time: 0.14 sec Doppler Measurements & Calculations MV E max adan: 62.6 cm/sec Lat Peak E' Adan: 9.9 cm/sec Med Peak E' Adan: 9.5 cm/sec MV A max adan: 83.0 cm/sec E/E' lat: 6.3 E/E' med: 6.6 MV E/A: 0.75 Ao V2 max: 133.1 cm/sec LV V1 max: 92.0 cm/sec MV dec slope: 454.9 cm/sec2 Ao max P.1 mmHg LV V1 max P.4 mmHg Ao V2 mean: 87.2 cm/sec LV V1 mean P.7 mmHg Ao mean P.5 mmHg LV V1 mean: 60.3 cm/sec Ao V2 VTI: 31.2 cm LV V1 VTI: 19.7 cm AV (velocity ratio): 0.63 PA V2 max: 94.7 cm/sec PI end-d adan: 76.6 cm/sec TR max adan: 244.2 cm/sec TR max P.8 mmHg ECHO/Echo Complete Interpretation Summary Normal LV size. Left ventricular systolic function is normal. The left ventricular ejection fraction is 60 %. Redundant mitral valve cords but no prolapse noted. Mild-Moderate (1-2+) eccentric mitral valve insufficiency. Pulmonary artery systolic pressure is 28 mmHg. Ordering Physician: Benito Huynh Referring Physician: Ab Valdes Performed By: Tiffany Franklin RDCS
--- NOTE | 2024-06-18 16:49 | EKG12_ITS ---
Test Reason : Blood Pressure : */* mmHG Vent. Rate : 71 BPM Atrial Rate : 71 BPM P-R Int : 166 ms QRS Dur : 90 ms QT Int : 414 ms P-R-T Axes : 78 74 56 degrees QTcB Int : 449 ms Normal sinus rhythm Normal ECG When compared with ECG of 18-Jun-2024 14:29, MANUAL COMPARISON REQUIRED DATA IS UNCONFIRMED Confirmed by NAHID YOON, MARTA ([id number]), market editor ABDULKADIR PAREDES ([id number]) on 06/19/2024 9:58:47 AM Referred By: Benito Huynh Confirmed By: MARTA WHITFIELD MD
[2024-06-18] MEDS: Enoxaparin 100 MG/ML Syringe 70 MG SC (17:21)
[2024-06-18 17:57] LABS: Troponin-I HS 74 pg/mL (3.0-54.0)
[2024-06-18] MEDS: Ezetimibe 10 MG Tablet PO (20:30)
[2024-06-18] MEDS: Pravastatin 20 MG Tablet 30 MG PO (20:30)
[2024-06-18] MEDS: traZODone 100 MG Tablet PO (22:05)
[2024-06-19] VITALS (10 sets, daily range): BP systolic 120–142; BP diastolic 65–94; PULSE 65–72; RESP 15–18; TEMP 36.6–36.8; O2SAT 95–99
[2024-06-19 06:33] LABS: Cholesterol 153 mg/dL (200); High Density Lipoprotein 62 mg/dL; Triglycerides 88 mg/dL; Very Low Density Lipoprotein 18 mg/dL (5-40)
--- NOTE | 2024-06-19 06:57 | PCM.CONS.C ---
Assessment & Plan Assessment/Plan (1) Unstable angina: PLAN: She does present with chest discomfort which is suggestive of new onset angina. Her cardiac enzymes are mildly abnormal. She does have some features which are suggestive of coronary disease. I did have an extensive discussion with her suggesting either stress testing or left heart catheterization or a CT angiogram. At this particular time she is not interested in a stress test that she has had 1 a year ago and wants to discuss this further with family and/or primary physician before proceeding. In the meantime we will obtain echocardiogram to assess ventricular function Continue aspirin Continue ezetimibe Continue statin Will treat blood pressure more aggressively at this time with amlodipine 5 mg a day due to relative bradycardia. Depending on her further decision further recommendations will be made Addendum: 10:36 AM Cardiac catheterization demonstrated nonobstructive coronary disease and preserved ejection fraction. Will recommend medical therapy. Outpatient follow-up. HPI Consult Data Date of Consult: 06/19/24 HPI Narrative HPI Narrative: SARAI MORAN, is a 69 F who presents to the emergency room with chest heaviness which she is says has been going on for the last 3 to 4 days. She is not really able to say whether this is with activity or at rest but it appears to radiate over to her left shoulder. She has a history of hyperlipidemia and the treatment and did undergo a stress test approximately a year ago after she had a syncopal episode together with a tilt table test both of which were negative. In the emergency room she was noted to have an abnormal troponin but within normal cardiac enzymes. She has had no recent dizziness or diaphoresis near syncope or syncope. She has not had any nausea or abdominal discomfort. She previously had surgery for a gastrointestinal stromal tumor. At this particular time she is pain-free. [facility] Medical History Acute bronchitis, unspecified COVID-19 COVID-19 Elevated blood-pressure reading without diagnosis of hypertension Hematoma of left lower leg Chest wall contusion Lab test negative for COVID-19 virus Acute bronchitis, unspecified Chest pain Fatigue Mass of left side of neck Multiple thyroid nodules Varicose veins of other specified sites Stromal tumor of the stomach Shingles Osteoarthritis HLA-B27 positive arthropathy IBS (irritable bowel syndrome) Fibromyalgia Breast density Arthralgia of temporomandibular joint Home Medications ?Medication ?Instructions ?Recorded ?Last Taken ?Type calcium 600 mg (as 1 ea PO DAILY supp 02/24/17 06/17/24 History carbonate)-vitamin D3 20 mcg (800 unit) tablet carbamazepine 100 mg 100 mg PO BID 04/10/21 Unknown History tablet,extended release,12 hr celecoxib 100 mg capsule 100 mg PO BID 06/18/24 Unknown History estradiol 0.01% (0.1 mg/gram) 0.5 g vaginal .COMPLEX vaginal 06/18/24 Unknown History vaginal cream ezetimibe 10 mg tablet 10 mg PO QHS cholesterol 06/18/24 06/17/24 History loratadine 10 mg tablet (Claritin) 10 mg PO DAILY allergies 06/18/24 06/18/24 History pravastatin 10 mg tablet 30 mg PO DAILY cholesterol 06/18/24 06/17/24 History trazodone 100 mg tablet 100 mg PO QHS sleep 06/18/24 06/17/24 History Allergy/AdvReac Type Severity Reaction Status Date / Time adhesive AdvReac BLISTERS Verified 06/18/24 13:46 atorvastatin (From Lipitor) AdvReac MUSCLE ACHE Verified 06/18/24 13:46 simvastatin (From Zocor) AdvReac MUSCLE ACHE Verified 06/18/24 13:46 Family History Mother Arthritis Diabetes Father Diabetes Heart disease High cholesterol Brother Heart disease High cholesterol Sister Heart disease Surgical History History of total hip replacement hx of tumor removal of stomach History of laparoscopic partial gastrectomy Hx of varicose vein stripping Hx of tubal ligation Hx of colonoscopy Hx of breast biopsy Social History Smoking Status: Never smoker second hand exposure: No alcohol intake: never substance use type: does not use caffeine: Yes (twice a month) what type of physical activity do you participate in: other details: physical work frequency: 3-4 times per week seatbelt use: always ROS Constitutional Constitutional: Denies fever(s) or weight loss Eyes Eyes: Reports systems reviewed and no addt'l complaints, except as documented ENT HEENT: Reports systems reviewed and no addt'l complaints, except as documented Cardiovascular Cardiovascular: Reports chest pain at rest and chest pain with activity; Denies dyspnea at rest, dyspnea on exertion, edema, palpitations or paroxysmal nocturnal dyspnea Respiratory/Chest Respiratory/Chest: Denies dyspnea on exertion, productive cough, shortness of breath at rest or shortness of breath with exertion Gastrointestinal Gastrointestinal: Denies change in bowel habits, nausea, vomiting or weight changes Genitourinary Genitourinary: Denies difficulty urinating Musculoskeletal Musculoskeletal: Denies joint stiffness or muscle weakness Integumentary Integumentary: Denies lesions Neurologic Neurologic: Denies dizziness or syncope Psychiatric Psychiatric: Denies anxiety Endocrine Endocrinology: Denies excessive sweating or fatigue Hematologic/Lymphatic Hematologic/Lymphatic: Denies anemia Allergic/Immunologic Allergic/Immunologic: Denies seasonal rhinorrhea Physical Exam Const alert, oriented x3 and no apparent distress General Appearance: cooperative HEENT hearing grossly normal bilaterally Head and Scalp: atraumatic Eyes EOMs intact bilaterally Neck General: normal visual inspection Chest inspection of chest normal and palpation of chest normal Resp normal respiratory effort Auscultation: clear to auscultation bilaterally Cardio regular rate, regular rhythm, S1 normal heart sound and S2 normal heart sound Jugular Venous Distention: JVD GI normal to inspection, nondistended, normoactive bowel sounds Extremity normal capillary refill and no pedal edema Peripheral Pulses: Yes pulses 2+ throughout and femoral pulses present Skin no rashes or lesions noted Neuro oriented x3 and CN's II-XII intact bilaterally Psych Appearance: grossly normal and appropriate Risk Stratification Risk Stratification Applicable: Yes Age >/= 65: Yes >/= 3 CAD Risk Factors (HTN, HLD, DM, family hx of CAD, or current smoker): No Aspirin Use in the Past 7 Days: No Severe Angina (>/= episodes in 24 hours): No EKG ST Changes >/= 0.5mm: No Positive Cardiac Marker: Yes PATSY Risk Stratification Score: 2 PATSY % Risk: 8% Risk Objective Data Vital Signs: Vital Signs Temp Pulse Resp BP Pulse Ox O2 Del Method 97.9 F 70 15 127/65 H 98 Room Air 06/19/24 03:00 06/19/24 03:00 06/19/24 03:00 06/19/24 03:00 06/19/24 03:00 06/19/24 03:00 Oxygen Delivery Method Room Air Weight: 158 lb 4.67 oz Body Mass Index (BMI) 29.9 Intake & Output: Intake and Output for Last 24 Hours 06/17/24 06/18/24 06/19/24 23:59 23:59 23:59 Intake Total 720 / 720 Output Total 600 / 600 250 / 250 Balance 120 / 120 -250 / -250 Lab / Micro Data 06/18/24 14:00 06/18/24 14:00 Labs: Laboratory Results - last 24 hr 06/18/24 14:00: WBC 4.9, RBC 4.29, Hgb 13.5, Hct 40.6, MCV 94.6, MCH 31.5, MCHC 33.3, RDW Std Deviation 41.4, RDW Coeff of Juan 12.0, Plt Count 203, MPV 11.7, Immature Gran % (Auto) 0.400, Neut % (Auto) 63.9, Lymph % (Auto) 25.5, [place] % (Auto) 8.4, Eos % (Auto) 1.2, Baso % (Auto) 0.6, Absolute Neuts (auto) 3.1, Absolute Lymphs (auto) 1.24, Nucleated RBC % 0, Sodium 138, Potassium 3.8, Chloride 105, Carbon Dioxide 27.0, Anion Gap 7, BUN 18, Creatinine 0.91, Estim Creat Clear Calc 55.08, Est GFR (MDRD) Af Amer 80, Est GFR (MDRD) Non-Af 66, BUN/Creatinine Ratio 19.9, Glucose 98, Calcium 9.0, Total Bilirubin 0.60, AST 30, ALT 25, Alkaline Phosphatase 77, Troponin I High Sens 75 H, Total Protein 7.4, Albumin 3.8, Globulin 3.6, Albumin/Globulin Ratio 1.1, Lipase 45 06/18/24 16:05: Troponin I High Sens 76 H 06/18/24 17:08: Troponin I High Sens 74 H 06/19/24 05:38: Triglycerides 88, Cholesterol 153, LDL Cholesterol 73, VLDL Cholesterol 18, HDL Cholesterol 62 Micro: Microbiology 06/18/24 14:57 Mucosa - Nose SARS-CoV-2, Influenza & RSV (PCR) - Final Cardiology Labs/Tests 06/18/24 14:00: WBC 4.9, RBC 4.29, Hgb 13.5, Hct 40.6, MCV 94.6, MCH 31.5, MCHC 33.3, Plt Count 203, MPV 11.7, Immature Gran % (Auto) 0.400, Neut % (Auto) 63.9, Lymph % (Auto) 25.5, [place] % (Auto) 8.4, Eos % (Auto) 1.2, Baso % (Auto) 0.6, Absolute Neuts (auto) 3.1, Nucleated RBC % 0, Sodium 138, Potassium 3.8, Chloride 105, Carbon Dioxide 27.0, Anion Gap 7, BUN 18, Creatinine 0.91, Est GFR (MDRD) Af Amer 80, Est GFR (MDRD) Non-Af 66, BUN/Creatinine Ratio 19.9, Glucose 98, Calcium 9.0, Total Bilirubin 0.60 06/19/24 05:38: Triglycerides 88, Cholesterol 153, LDL Cholesterol 73, VLDL Cholesterol 18, HDL Cholesterol 62 Rhythm: EKG: ECHO: Stress Test: Cardiac Cath: PCI: CT Surgery: Holter monitor: EPS: PPM: CXR: Chest CT Scan: Radiography Diagnostic Testing: Radiology Impression Chest X-Ray 06/18/24 14:35 IMPRESSION: Degenerative changes, as described above. No demonstrated acute cardiopulmonary process. Electronically Signed: Felipe Mccormick MD at 15:12 EST ,
--- NOTE | 2024-06-19 09:15 | CASEMGMT ---
Insurance review for hospitals In-network with?MCR insurance if transfer is recommended is as follows: [facility], [place], [facility], [place], [facility], [facility], [facility], [facility], [place], [facility] ([facility]), and . Jen Gong, Discharge Planning Asst.
[2024-06-19] MEDS: Aspirin E.C. 81 MG Tablet PO (09:16)
[2024-06-19] MEDS: 0.9% Saline Lock 10 ML Syringe IV (09:17)
--- NOTE | 2024-06-19 10:35 | CL.D_ITS ---
Patient Name: SARAI MORAN Study Date: 06/19/2024 Performing: Salvatore Gutierrez MD Ht: 61 inches 154.94 cm : 1955 Wt: 158.29 lbs 71.8 kg Age: 69 Gender: female BSA: 1.71 PROCEDURE(S) PERFORMED [id number])LHC/COR/LV CLINICAL PROFILE AND INDICATIONS Indications: Worsening Angina Heart Failure: None Stress/Imaging Stress/Image Study Performed: No CAD Presentations: Unstable angina. CONCLUSIONS Non obstructive coronary arteries RECOMMENDATIONS Medical therapy DESCRIPTION OF PROCEDURE The patient arrived to the procedure lab. The risks and benefits of the procedure as well as a full description of our services here and current unavailability of surgical backup were fully explained to the patient and/or their significant other prior to the catheterization. The Timeout was completed, verifying the correct patient and procedure. The patient's procedural site was prepped and draped in the usual fashion. Local anesthetic was given subcutaneously to right radial region with Lidocaine 2%. Using a modified Seldinger technique, arterial access was obtained via the right radial artery, a 6Fr sheath was inserted. sotero Left Coronary Artery selective angiography was performed in multiple views using a 5 Fr. 4.0 [place] catheter. Right Coronary Artery selective angiography was then performed in multiple views using a 5 Fr. 4.0 [place] catheter. Left Ventriculography was performed in AGRAWAL projection using a 5 Fr. Pigtail catheter. LV to AO pullback pressures were then recorded.The arterial sheath was pulled and a TR Band was applied for hemostasis CORONARY ANGIOGRAPHY DOMINANCE: Right Dominant LEFT HEART ASSESSMENT Left Ventricular Ejection Fraction: by LV Gram 55 % Normal Left Ventricular systolic function LEFT MAIN: Angiographically normal LEFT ANTERIOR DESCENDING ARTERY: Mild luminal irregularities less than 30% CIRCUMFLEX ARTERY: Mild luminal irregularities less than 30% RIGHT CORONARY ARTERY: Mild luminal irregularities less than 30% COMPLICATIONS No Complications PROCEDURE MEDICATIONS Versed 1 mg IV Fentanyl 50 mcg IV Oxygen: 2 L/min via nasal cannula Heparin given IA 06/19/2024 10:05:44 Verapamil 2.5mg, Ntg 200mcgs, 2000 units of Heparin given IA 06/19/2024 10:05:44 SUMMARY OF HEMODYNAMIC DATA Time AIR REST ECG 09:50:04 AO 134/74 (99) SA 10:18:28 LV 137/14, 24 10:23:37 LV 116/13, 22 10:23:44 LV 116/17, 24 10:24:16 LV 110/17, 20 10:24:23 LVp 133/17, 24 10:24:28 AOp 133/62 (96) 10:24:33 Signed By Salvatore Gutierrez MD On 06/19/2024 10:35:32 Salvatore Gutierrez MD
--- NOTE | 2024-06-19 11:45 | CASEMGMT ---
RN CM Face to Face with patient for initial transition planning/care coordination assessment. RN CM introduced self and role at [facility]. Patient lying in bed, alert and oriented. Patient willing to participate in assessment and is able to answer all questions appropriately. Care providers, pharmacy, and demographics verified. Strata: 2 PCP: Lucio Specialists: none Preferred Pharmacy: [facility] Insurance: [facility] Prescription Benefit: yes Living Will/HPOA: yes, daughter Fatmata Gong LNOK: daughter, sons Living Arrangements: Patient lives with significant other in a 2 story home with bed and bath on first floor. Patient states she is independent at home. Transportation: self, significant other DME/HHC: Patient has crutches at home. Patient wishes to discharge home, denies need for home health at this time. Patient states she has no further needs or concerns at this time. CM to follow for discharge planning needs that may arise. Disposition Plan: [place] to discharge home with family support and follow-up plans in place. Debbie PAINTER, RN, CM
--- NOTE | 2024-06-19 12:57 | DCINST_ITS ---
Discharge Instructions Diet Discharge Diet: Low fat / Low cholesterol DC O2, CPAP, BIPAP needs Home O2 Discharge instructions: No Dressing / Incision Discharge Activity: Return to Normal Activity Weight Bearing Status: Weight bearing as tolerated Dressing / Incision Call your doctor if you observe: Fever of 101 or Higher, Shortness of breath, Dizziness, Swelling in the ankles, Chest pain and Increased palpitations (irregular heartbeat) Follow Up Care Test Results: Test results from this visit will be discussed in further detail at your follow- up appointment, if applicable. Discharge Plan Admission Admit Date/Time: 06/18/24 15:22 Primary Reason for Your Visit: unstable angina Attending Provider: Radha Mendoza Primary Care Provider: Gustabo Valdes Consulting Providers: Salvatore Gutierrez; Benito Huynh Instructions Patient Instructions: Discharge Instructions for Angina Discharge Orders/Prescriptions Prescriptions: New aspirin 81 mg Tablet,Delayed Release (Dr/Ec) 81 mg PO BREAKFAST Qty: 30 2RF amlodipine 5 mg tablet 5 mg PO DAILY Qty: 30 2RF Continued calcium carbonate-vitamin D3 1 EACH tablet 1 ea PO DAILY carbamazepine 100 mg tablet extended release 12 hr 100 mg PO BID Patient Comments: TAKE 1 TABLET BY MOUTH TWICE DAILY pravastatin 10 mg tablet 30 mg PO DAILY trazodone 100 mg tablet 100 mg PO QHS ezetimibe 10 mg tablet 10 mg PO QHS estradiol 0.01 % (0.1 mg/gram) cream 0.5 g vaginal .COMPLEX Patient Comments: Tuesdays and Rx Instructions: 0.5 grams vaginally twice a week; loratadine [Claritin] 10 mg tablet 10 mg PO DAILY Discontinued celecoxib 100 mg capsule 100 mg PO BID Referrals / Follow Up: Gustabo Valdes MD [Primary Care Provider] - Within 1 Week Salvatore Gutierrez MD [Med Staff - Active Staff] - Within 2 Weeks Disposition Disposition (needs filled in before D/C Order can be placed): Home, Self Care
--- NOTE | 2024-06-19 12:58 | PCM.DC.SUM ---
Providers Date of Admission: 06/18/24 Date of Discharge: 06/19/24 Primary Care Physician: Dr. Gustabo Valdes MD Consultations 06/18/24 16:49 Consult: Cardiology Routine Consulting Provider: Salvatore Gutierrez Reason for Consult: Chest Pain EMERGENT Consult: No MD Notified: Yes Date Notified: 06/18/24 Time Notified: 15:25 Method of Notification: Text Reason For Visit: UNSTABLE ANGINA Diagnosis Discharge Diagnosis (1) Unstable angina: Status: Acute Code(s): I20.0 - Unstable angina Medications at Discharge Home Medications calcium 600 mg (as carbonate)-vitamin D3 20 mcg (800 unit) tablet 1 ea PO DAILY supp 02/24/17 carbamazepine 100 mg tablet,extended release,12 hr 100 mg PO BID seizures 04/10/21 estradiol 0.01% (0.1 mg/gram) vaginal cream 0.5 g vaginal .COMPLEX vaginal 06/18/24 ezetimibe 10 mg tablet 10 mg PO QHS cholesterol 06/18/24 loratadine 10 mg tablet (Claritin) 10 mg PO DAILY allergies 06/18/24 pravastatin 10 mg tablet 30 mg PO DAILY cholesterol 06/18/24 trazodone 100 mg tablet 100 mg PO QHS sleep 06/18/24 amlodipine 5 mg tablet 5 mg PO DAILY #30 tabs 06/19/24 aspirin 81 mg tablet,delayed release 81 mg PO BREAKFAST #30 tabs 06/19/24 Hospital Course Operations None Procedures 2-D Echocardiogram and Cardiac catheterization Summary of Care Provided Minutes Spent on Discharge: 45 Hospital Course: Patient is a 69-year-old female with a past medical history as outlined was admitted through the ED on 06/18/2024 with a complaint of chest pain which was midsternal and slightly more to the right and had been going on for about 3 days prior to admission. She said it felt pressure-like but did not radiate to her jaw or her left arm. The ED initial troponin was 75 and EKG showed no acute ST changes. She was given aspirin and admitted to be managed for chest pain to rule out ACS. Cardiology was consulted. She was also given a dose of therapeutic dose of Lovenox. She had 2D echo which showed EF of 60% with no regional wall motion abnormalities and showed redundant mitral valve cords but no prolapse noted. She had cardiac cath which showed nonobstructive coronary arteries. Patient remained stable and was discharged home on p.o. amlodipine 5 mg daily as well as p.o. aspirin 81 mg daily. She was continued on her ezetimibe and pravastatin. She is to follow-up with her primary care doctor within 1 to 2 weeks and follow-up with cardiology within 2 to 4 weeks. Patient seen and examined prior to discharge. She had no active complaints. Review of systems otherwise negative. Labs and vitals reviewed. Medication reviewed and reconciled. Physical Exam Const alert, oriented x3 and no apparent distress General Appearance: cooperative, comfortable and well kempt Orientation / Consciousness: awake Exam Limitations: no limitations HEENT normocephalic, head/scalp atraumatic, hearing grossly normal bilaterally, moist oral mucous membranes and oropharynx normal Mouth: oral and palatal mucosa normal Eyes PERRL, EOMs intact bilaterally and conjunctivae normal Neck no lymphadenopathy, supple and no JVD Resp normal respiratory effort, no retractions, no use of accessory muscles and clear to auscultation bilaterally Cardio regular rate, regular rhythm, S1 normal heart sound, S2 normal heart sound and no murmurs GI normal to inspection, nondistended, normoactive bowel sounds, soft to palpation, non-tender and non-distended Extremity normal to inspection, full ROM and no clubbing, cyanosis or edema Skin no rashes or lesions noted, no wounds, skin turgor normal and no jaundice Neuro oriented x3, CN's II-XII intact bilaterally, moves all extremities and no focal motor deficits Sensorium / Orientation: awake and alert Motor Exam: strength 5/5 throughout Psych affect normal Weight / BMI Weight Weight: 158 lb 4.67 oz Body Mass Index (BMI) 29.9 ABG / Lab / Microbiology Data 06/18/24 14:00 06/18/24 14:00 Laboratory: Laboratory Results - last 24 hr 06/18/24 16:05: Troponin I High Sens 76 H 06/18/24 17:08: Troponin I High Sens 74 H 06/19/24 05:38: Triglycerides 88, Cholesterol 153, LDL Cholesterol 73, VLDL Cholesterol 18, HDL Cholesterol 62 Microbiology: Microbiology 06/18/24 14:57 Mucosa - Nose SARS-CoV-2, Influenza & RSV (PCR) - Final Radiography Diagnostic Testing: Radiology Impression Chest X-Ray 06/18/24 14:35 IMPRESSION: Degenerative changes, as described above. No demonstrated acute cardiopulmonary process. Electronically Signed: Felipe Mccormick MD at 15:12 EST Reading Location ID and State: [facility] / [place] , Service support , Echocardiogram 06/18/24 16:49 Interpretation Summary Normal LV size. Left ventricular systolic function is normal. The left ventricular ejection fraction is 60 %. Redundant mitral valve cords but no prolapse noted. Mild-Moderate (1-2+) eccentric mitral valve insufficiency. Pulmonary artery systolic pressure is 28 mmHg. Ordering Physician: Benito Huynh Referring Physician: Ab Valdes Performed By: Tiffany Franklin RDCS D/C Instructions Discharge Diet: Low fat / Low cholesterol Discharge Activity: Return to Normal Activity Weight Bearing Status: Weight bearing as tolerated Call your doctor if you observe: Fever of 101 or Higher, Shortness of breath, Dizziness, Swelling in the ankles, Chest pain and Increased palpitations (irregular heartbeat) DC O2, CPAP, BIPAP Needs Home O2 Discharge instructions: No Meaningful Use Info Meaningful Use Meaningful Use Diagnoses (Choose all that apply): None applicable Ischemic Stroke Statin Dosing Therapy Reference: STATIN DOSE THERAPY REFERENCE: * Patients > 75 years receive moderate or high dose statin therapy. * Patients 75 years or YOUNGER should receive HIGH intensity statin dose unless contraindicated. You will be required to document reason for non-treatment if statin daily dose does not meet guidelines. HIGH DOSE STATIN THERAPY DAILY Atorvastatin > than or = to 40 mg Rosuvastatin > than or = to 20 mg Amlodipine + Atorvastatin > than or = to 2.5/40 mg Ezetimibe + Simvastatin 10/80 mg Simvastatin 80mg Discharge Plan Admission Admit Date/Time: 06/18/24 15:22 Primary Reason for Your Visit: unstable angina Attending Provider: Radha Mendoza Primary Care Provider: Gustabo Valdes Consulting Providers: Salvatore Gutierrez; Benito Huynh Instructions Patient Instructions: Discharge Instructions for Angina Discharge Orders/Prescriptions Prescriptions: New aspirin 81 mg Tablet,Delayed Release (Dr/Ec) 81 mg PO BREAKFAST Qty: 30 2RF amlodipine 5 mg tablet 5 mg PO DAILY Qty: 30 2RF Continued calcium carbonate-vitamin D3 1 EACH tablet 1 ea PO DAILY carbamazepine 100 mg tablet extended release 12 hr 100 mg PO BID Patient Comments: TAKE 1 TABLET BY MOUTH TWICE DAILY pravastatin 10 mg tablet 30 mg PO DAILY trazodone 100 mg tablet 100 mg PO QHS ezetimibe 10 mg tablet 10 mg PO QHS estradiol 0.01 % (0.1 mg/gram) cream 0.5 g vaginal .COMPLEX Patient Comments: Tuesdays and Rx Instructions: 0.5 grams vaginally twice a week; loratadine [Claritin] 10 mg tablet 10 mg PO DAILY Discontinued celecoxib 100 mg capsule 100 mg PO BID Referrals / Follow Up: Gustabo Valdes MD [Primary Care Provider] - Within 1 Week Salvatore Gutierrez MD [Med Staff - Active Staff] - Within 2 Weeks Disposition Disposition (needs filled in before D/C Order can be placed): Home, Self Care Charges/Coding Visit Charges Inpatient E&M: 64610 Disch Hosp >30min
== END 2024-06-19 14:59 | disposition home or self-care (01) | DRG 287 ==
LOC: ED 15:13 → PCU 16:23
PROVIDERS: Nurse Practitioner; Emergency Provider Emergency Medicine; PCP Family Medicine; Visit Provider Student in an Organized Health Care Education/Training Program
DX: I25.110 Atherosclerotic heart disease of native coronary artery with unstable angina pectoris (principal); G50.0 Trigeminal neuralgia; M19.90 Unspecified osteoarthritis, unspecified site; M79.7 Fibromyalgia; M81.0 Age-related osteoporosis without current pathological fracture; R79.89 Other specified abnormal findings of blood chemistry; Z86.16 Personal history of COVID-19; Z79.1 Long term (current) use of non-steroidal anti-inflammatories (NSAID); Z79.82 Long term (current) use of aspirin; Z82.49 Family history of ischemic heart disease and other diseases of the circulatory system; Z98.51 Tubal ligation status
CPT/HCPCS: 36415; 71046; 80053; 80061; 83690; 84484; 85025; 87631; 93005; 93306; 93458; 99152; 99153; 99284; Q9967; A4216; C1769; C1894